=== PATIENT | male | born 1955 | race Caucasian/White ===

== ENCOUNTER 2020-07-24 12:45 | Outpatient (REF) | payer BC, SELFPAY ==
[2020-07-24 14:42] LABS: Hematocrit 45.2 % (42-52); Hemoglobin 15.1 g/dl (14.0-18.0); Mean Corpuscular HGB Conc 33.4 g/dl (31.0-36.0); Mean Corpuscular Hemoglobin 27.9 pg (27.0-33.0); Mean Corpuscular Volume 83.4 fL (80-98); Mean Platelet Volume 10.5 fL (9.4-12.4); Platelet Count 192 X10*3/uL (160-400); Red Blood Count 5.42 X10*6/uL (4.60-5.80); Red Cell Distribution Width 12.6 % (11.0-16.0); White Blood Count 6.9 X10*3/uL (4.8-10.8)
[2020-07-24 15:11] LABS: Glucose Urine UA NEG (NEG); Leukocyte Esterase Urine NEG (NEG); Nitrite Urine NEG (NEG); Specific Gravity - Urine 1.025 (1.005-1.025); Urine Blood NEG (NEG); Urine Ketones NEG (NEG); Urine Protein NEG (NEG-TRACE)
[2020-07-24 15:14] LABS: Appearance Urine CLEAR; Color Urine YELLOW
[2020-07-24 15:26] LABS: Alanine Aminotransferase 45 U/L (0-40); Albumin Level 4.4 g/dL (3.5-5.0); Alkaline Phosphatase 113 U/L (39-117); Anion Gap 12 (12-20); Aspartate Amino Transferase 26 U/L (5-37); Bilirubin Total 0.9 mg/dL (0.0-1.0); Blood Urea Nitrogen 16 mg/dL (9-16); Calcium 8.8 mg/dL (8.4-10.2); Carbon Dioxide 30 mmol/L (22-29); Chloride 101 mmol/L (96-108); Cholesterol 110 mg/dL; Estimated Glomerular Filt Rate > 60; Glucose Fasting 79 mg/dL (60-99); HDL Cholesterol 37 mg/dL; LDL Cholesterol Calculated 62 mg/dl; Potassium 5.1 mmol/l (3.3-5.1); Sodium 138 mmol/L (135-145); Total Protein 6.9 g/dL (6.5-8.0); Triglycerides 56 mg/dL
== END 2020-07-24 12:46 | disposition home or self-care (01) ==
LOC: HO.HMGCLDS 12:45
PROVIDERS: PCP Internal Medicine; Visit Provider Internal Medicine
DX: E78.2 Mixed hyperlipidemia (principal); I10 Essential (primary) hypertension; F41.9 Anxiety disorder, unspecified
CPT/HCPCS: 36415; 80053; 80061; 81003; 84153; 85027

== ENCOUNTER 2021-02-01 07:56 | Outpatient (REF) | payer BC, SELFPAY ==
[2021-02-01 11:29] LABS: MANUAL DIFF FLAG NO
[2021-02-01 11:44] LABS: Basophils Percent Auto 0.5 % (0-2); Eosinophils Absolute Auto 0.3 X10*3/uL (0.0-0.4); Eosinophils Percent Auto 3.4 % (0-4); Hematocrit 45.7 % (42-52); Hemoglobin 14.9 g/dl (14.0-18.0); Imm Gran Abs Auto 0.02 X10*3/uL (0.00-0.03); Imm Gran Pct Auto 0.2 % (0.0-0.4); Lymphocytes Absolute Auto 2.4 X10*3/uL (1.2-4.9); Lymphocytes Percent Auto 30.2 % (20-40); Mean Corpuscular HGB Conc 32.6 g/dl (31.0-36.0); Mean Corpuscular Hemoglobin 27.7 pg (27.0-33.0); Mean Corpuscular Volume 85.1 fL (80-98); Mean Platelet Volume 10.4 fL (9.4-12.4); Monocytes Absolute Auto 0.6 X10*3/uL (0.1-1.2); Monocytes Percent Auto 7.6 % (2-11); Neutrophils Absolute Auto 4.7 X10*3/uL (2.0-8.3); Neutrophils Percent Auto 58.1 % (45-73); Platelet Count 190 X10*3/uL (160-400); Red Blood Count 5.37 X10*6/uL (4.60-5.80); Red Cell Distribution Width 12.8 % (11.0-16.0)
[2021-02-01 12:21] LABS: Alanine Aminotransferase 38 U/L (0-40); Albumin Level 4.1 g/dL (3.5-5.0); Alkaline Phosphatase 108 U/L (39-117); Anion Gap 11 (12-20); Aspartate Amino Transferase 18 U/L (5-37); Bilirubin Total 0.5 mg/dL (0.0-1.0); Blood Urea Nitrogen 15 mg/dL (9-16); Calcium 8.9 mg/dL (8.4-10.2); Carbon Dioxide 29 mmol/L (22-29); Chloride 105 mmol/L (96-108); Cholesterol 108 mg/dL; Estimated Glomerular Filt Rate > 60; Glucose Fasting 98 mg/dL (60-99); HDL Cholesterol 34 mg/dL; LDL Cholesterol Calculated 60 mg/dl; Potassium 4.3 mmol/L (3.3-5.1); Sodium 141 mmol/L (135-145); Total Protein 6.6 g/dL (6.5-8.0); Triglycerides 70 mg/dL
== END 2021-02-01 07:57 | disposition home or self-care (01) ==
LOC: HO.HMGCLDS 07:56
PROVIDERS: PCP Internal Medicine; Visit Provider Internal Medicine
DX: Z00.00 Encounter for general adult medical examination without abnormal findings (principal); I10 Essential (primary) hypertension; I25.10 Atherosclerotic heart disease of native coronary artery without angina pectoris; E78.5 Hyperlipidemia, unspecified
CPT/HCPCS: 36415; 80053; 80061; 85025

== ENCOUNTER 2021-09-28 07:51 | Outpatient (REF) | payer BC, SELFPAY ==
[2021-09-28 12:16] LABS: Alanine Aminotransferase 54 U/L (0-40); Albumin Level 4.1 g/dL (3.5-5.0); Alkaline Phosphatase 105 U/L (39-117); Anion Gap 12 (12-20); Aspartate Amino Transferase 28 U/L (5-37); Bilirubin Total 0.9 mg/dL (0.0-1.0); Blood Urea Nitrogen 10 mg/dL (9-16); Carbon Dioxide 29 mmol/L (22-29); Chloride 105 mmol/L (96-108); Cholesterol 98 mg/dL; Estimated Glomerular Filt Rate > 60; Glucose Fasting 99 mg/dL (60-99); HDL Cholesterol 26 mg/dL; LDL Cholesterol Calculated 55 mg/dl; Potassium 4.3 mmol/L (3.3-5.1); Sodium 142 mmol/L (135-145); Total Protein 6.8 g/dL (6.5-8.0); Triglycerides 86 mg/dL
== END 2021-09-28 07:52 | disposition home or self-care (01) ==
LOC: HO.HMGCLDS 07:51
PROVIDERS: PCP Internal Medicine; Visit Provider Internal Medicine
DX: E78.5 Hyperlipidemia, unspecified (principal); I10 Essential (primary) hypertension
CPT/HCPCS: 36415; 80053; 80061

== ENCOUNTER 2021-12-23 08:47 | Outpatient (REF) | payer BC, SELFPAY ==
--- NOTE | ~2021-12-23 | XR_ITS ---
EXAMINATION: XR SHOULDER , RIGHT CLINICAL INFORMATION: Pain COMPARISON: None available at the time of this dictation. TECHNIQUE: AP external rotation, Grashey, scapular Y, and axillary views of the shoulder. FINDINGS: BONES: There is no fracture or dislocation, no osteolytic or osteoblastic lesion. JOINTS: Loss of joint space and developed osteophytes from the edges of articular surfaces suggest advanced degenerative arthritis of the glenohumeral joint. There is mild to moderate degenerative osteoarthritis of the acromioclavicular joint. SOFT TISSUE AND INCLUDED LUNG: Normal. 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 Mild to moderate DJD of the adjacent AC joint.
[2021-12-23 11:34] LABS: Appearance Urine CLEAR; Color Urine YELLOW; Glucose Urine UA NEG (NEG); Leukocyte Esterase Urine NEG (NEG); Nitrite Urine NEG (NEG); Urine Blood NEG (NEG); Urine Ketones NEG (NEG); Urine Protein NEG (NEG-TRACE)
[2021-12-23 11:47] LABS: Mucus Urine 1+ /LPF; RBC Urine 0 /HPF (0); Squamous Epithelial Cell Urine TRACE /LPF; WBC Urine 0 /HPF (0-4)
[2021-12-23 11:53] LABS: Hematocrit 45.8 % (42.0-52.0); Hemoglobin 15.1 g/dl (14.0-18.0); Mean Corpuscular Hemoglobin 27.9 pg (27.0-33.0); Mean Corpuscular Volume 84.7 fL (80.0-98.0); Mean Platelet Volume 10.6 fL (9.4-12.4); Platelet Count 205 X10*3/uL (160-400); Red Blood Count 5.41 X10*6/uL (4.60-5.80); Red Cell Distribution Width 12.8 % (11.0-16.0)
[2021-12-23 12:01] LABS: Alanine Aminotransferase 38 U/L (0-40); Albumin Level 4.2 g/dL (3.5-5.0); Alkaline Phosphatase 100 U/L (39-117); Anion Gap 12 (12-20); Aspartate Amino Transferase 21 U/L (5-37); Bilirubin Total 0.8 mg/dL (0.0-1.0); Blood Urea Nitrogen 14 mg/dL (9-16); Calcium 9.5 mg/dL (8.4-10.2); Carbon Dioxide 28 mmol/L (22-29); Chloride 105 mmol/L (96-108); Cholesterol 104 mg/dL; Estimated Glomerular Filt Rate > 60; Glucose Fasting 104 mg/dL (60-99); HDL Cholesterol 32 mg/dL; LDL Cholesterol Calculated 60 mg/dl; Potassium 4.5 mmol/L (3.3-5.1); Sodium 140 mmol/L (135-145); Total Protein 6.9 g/dL (6.5-8.0); Triglycerides 62 mg/dL
[2021-12-23 12:04] LABS: Prostate Specific Antigen Scr 0.88 ng/mL (<0.05-4.0)
== END 2021-12-23 08:48 | disposition home or self-care (01) ==
LOC: HO.HMGCLDS 08:47
PROVIDERS: PCP Internal Medicine; Visit Provider Internal Medicine
DX: Z00.00 Encounter for general adult medical examination without abnormal findings (principal); Z12.5 Encounter for screening for malignant neoplasm of prostate; I10 Essential (primary) hypertension; E78.5 Hyperlipidemia, unspecified; M25.511 Pain in right shoulder
CPT/HCPCS: 36415; 73030; 80053; 80061; 81001; 84153; 85027

== ENCOUNTER 2022-01-26 08:00 | Outpatient (RCR) | payer BC, SELFPAY ==
--- NOTE | 2022-01-20 14:09 | MHC.PT.EP ---
[facility] [place] Office [place] Office [place] Office [address] Felix Barrera [address] [phone] F: [phone] F: [phone] F: [phone] F: [phone] Physical Therapy Plan of Care Date of Evaluation: Date of Surgery: Diagnosis: Pain R shoulder. Assessment: Pt is a 66 y/o male referred to PT for eval and treat of R shoulder pain who presents with signs and sx consistent with shoulder dysfunction resulting in decreased tolerance and ability to perform reaching a high shelf, dressing pullovers, performing fitness activities, reaching neck and back for hygiene/ dressing and carrying objects of weight as well as heavy HH chores secondary to decreased R UE strength and ROM, decreased posture, increased tissue tension and pain. Pt is deemed an appropriate candidate to receive skilled PT in order to address his physical limitations to improve his functional ability. Frequency and Duration: The patient will be seen 2 x / wk x 5 wks. Short Term Goals: Initiate HEP. Improve baseline pain with activity to <4/10; initial; 03/27. 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 Pt will be able to place object on high shelf with managed Sx. Initial: 02/25. Pt will be able to dress pullovers with managed Sx. Initial; 03/27. Improve R shoulder flexion MMT to by at least 1/2 MMT grade. Treatment Plan: Modalities to reduce pain, spasms and effusion. Manual therapy to restore motion and function. Therapeutic exercise to improve strength and flexibility. Neuromuscular re-education for posture and balance. Therapeutic activities to return to functional activities of daily living. Electronically signed by: Mikhail Michelle PT. Please sign and return to therapist. Thank you for your referral.
--- NOTE | 2022-03-16 14:24 | MHC.PT.DC ---
[facility] [place] Office [place] Office [place] Office [address] Felix Barrera [address] [phone] F: [phone] F: [phone] F: [phone] F: [phone] Physical Therapy Discharge Report Diagnosis: Pain R shoulder. Date of Surgery: Date of Evaluation: 01/17/22 Date of Discharge: 03/16/22 Treatments to Date: 3 Cancellations to Date: No Shows to Date: Discharge Status: Patient Elected to Stop Discharge Summary: Electronically signed by: Mikhail Michelle PT. Please sign and return to therapist. Thank you for your referral.
== END 2022-03-16 14:25 | disposition home or self-care (01) ==
LOC: HO.PTCHIC 08:00
PROVIDERS: PCP Internal Medicine; Visit Provider Internal Medicine
DX: M25.512 Pain in left shoulder (principal)
CPT/HCPCS: 97110; 97161

== ENCOUNTER 2022-06-30 15:23 | Emergency (ER) | payer BC, SELFPAY ==
--- NOTE | ~2022-06-30 | CT_ITS ---
EXAMINATION: CT ABDOMEN AND PELVIS WITHOUT CONTRAST CLINICAL INFORMATION: Abdominal pain. Suprapubic pain, left lower quadrant pain. COMPARISON: None TECHNIQUE: Multidetector volumetric imaging was performed from the superior aspect of the liver through the pubic symphysis. Sagittal and coronal reformatted images were obtained on the technologist's workstation. This CT examination was performed using dose optimization techniques as appropriate, variously including the following: *Automated exposure control *Adjustment of mA and/or kV according to patient size (this includes techniques or standardized protocols for targeted exams where dose is matched to indication/reason for exam; i.e. extremities or head) *Use of iterative reconstruction technique DLP: 688 mGy-cm FINDINGS: LUNG BASES: There are vascular calcification of coronary arteries. Heart size normal. Lung bases are normally aerated. LIVER, GALLBLADDER, AND BILIARY TREE: The liver is normal in size, shape, and attenuation. No focal hepatic lesion or biliary ductal dilatation is present. The gallbladder is unremarkable with no evidence of radiopaque gallstones, gallbladder wall thickening, or obvious pericholecystic inflammatory changes. PANCREAS: Unremarkable. SPLEEN: Unremarkable. ADRENAL GLANDS: Unremarkable. KIDNEYS AND URETERS: The kidneys are normal in size, shape, and attenuation. No hydronephrosis, hydroureter, or calculi seen. No perinephric stranding. BLADDER: Unremarkable. GASTROINTESTINAL TRACT: The small and large bowel are unremarkable. The appendix is unremarkable. ABDOMINAL WALL: No significant hernia is appreciated. LYMPH NODES: Normal. VASCULAR: Vascular calcifications of aorta and iliac arteries. No aneurysm. PELVIC VISCERA: Unremarkable. OSSEOUS STRUCTURES: Multilevel degenerative spondylosis spine. CT/CT abdomen pelvis wo IV con IMPRESSION: No significant abnormality. Fleischner guidelines were followed.
[2022-06-30 15:29] VITALS: PULSE 84; RESP 18; TEMP 36.7; O2SAT 100; BMI 32.3
[2022-06-30 15:44] LABS: MANUAL DIFF FLAG NO
[2022-06-30 15:47] LABS: Basophils Percent Auto 0.5 % (0-2); Eosinophils Absolute Auto 0.2 X10*3/uL (0.0-0.4); Eosinophils Percent Auto 1.9 % (0-4); Hematocrit 43.9 % (42.0-52.0); Hemoglobin 15.1 g/dl (14.0-18.0); Imm Gran Abs Auto 0.02 X10*3/uL (0.00-0.03); Imm Gran Pct Auto 0.2 % (0.0-0.4); Lymphocytes Absolute Auto 2.1 X10*3/uL (1.2-4.9); Lymphocytes Percent Auto 24.5 % (20-40); Mean Corpuscular HGB Conc 34.4 g/dl (31.0-36.0); Mean Corpuscular Hemoglobin 28.1 pg (27.0-33.0); Mean Corpuscular Volume 81.6 fL (80.0-98.0); Mean Platelet Volume 9.5 fL (9.4-12.4); Monocytes Absolute Auto 0.6 X10*3/uL (0.1-1.2); Monocytes Percent Auto 7.1 % (2-11); Neutrophils Absolute Auto 5.5 x10*3/uL (2.0-8.3); Neutrophils Percent Auto 65.8 % (45-73); Platelet Count 182 X10*3/uL (160-400); Red Blood Count 5.38 X10*6/uL (4.60-5.80); Red Cell Distribution Width 12.3 % (11.0-16.0); White Blood Count 8.4 X10*3/uL (4.8-10.8)
[2022-06-30 15:48] LABS: Appearance Urine Clear; Color Urine Yellow; Glucose Urine UA Negative (Negative); Leukocyte Esterase Urine Negative (Negative); Nitrite Urine Negative (Negative); PH 8.5 (5.0-9.0); Urine Blood Negative (Negative); Urine Ketones Negative (Negative); Urine Protein Negative (Neg-Trace)
[2022-06-30 16:13] LABS: Alanine Aminotransferase 35 U/L (0-40); Albumin Level 4.4 g/dL (3.5-5.0); Alkaline Phosphatase 110 U/L (39-117); Anion Gap 15 (12-20); Aspartate Amino Transferase 25 U/L (5-37); Bilirubin Direct 0.4 mg/dL (0.0-0.5); Bilirubin Total 0.8 mg/dL (0.0-1.0); Blood Urea Nitrogen 12 mg/dL (9-16); Calcium 9.4 mg/dL (8.4-10.2); Carbon Dioxide 27 mmol/L (22-29); Chloride 102 mmol/L (96-108); Creatinine Clr Calc Pharmacy 88.1; Estimated Glomerular Filt Rate > 60; Glucose Random 110 mg/dL (60-115); Lipase 26 U/L (8-78); Potassium 4.4 mmol/L (3.3-5.1); Sodium 140 mmol/L (135-145)
[2022-06-30 18:26] VITALS: BP 146/93; PULSE 69; RESP 18; TEMP 36.4; O2SAT 98
--- NOTE | 2022-06-30 22:02 | ED_ITS ---
HPI - Abdominal Pain General Chief Complaint: Abdominal Pain Stated Complaint: sent form doctors, lower abd pain Time Seen by Provider: 06/30/22 21:58 Source: patient Mode of arrival: ambulatory Limitations: no limitations History of Present Illness HPI narrative: 67 yo male with hx of HTN, HLD, anxiety here with c/o low suprapubic abdominal pain x 24 hours denies other associated symptoms like n/v/d dysuria/hematuria. States his has never happened before. MD elicited complaint: abdominal pain Pertinent past history: none Onset (ago): day(s) (1) Pain Consistency: constant Location: suprapubic Severity: moderate Quality: aching Radiation: none Migration to: no migration Exacerbating factors: nothing Relieving factors: nothing Associated symptoms: denies other symptoms Related Data Home Medications Medication Instructions Recorded Confirmed aspirin 81 mg tablet,delayed 81 mg PO DAILY 07/27/20 06/30/22 release Previous Rx's Medication Instructions Recorded atorvastatin 80 mg tablet 80 mg PO DAILY #90 tabs 07/28/21 lisinopril 30 mg tablet 30 mg PO DAILY #90 tabs 07/28/21 metoprolol succinate 50 mg 50 mg PO DAILY #90 tabs 07/28/21 tablet,extended release 24 hr buspirone 5 mg tablet 5 mg PO BID #180 tabs 09/29/21 omeprazole 20 mg capsule,delayed 40 mg PO DAILY #180 caps 04/15/22 release Allergies Allergy/AdvReac Type Severity Reaction Status Date / Time No Known Allergies Allergy Verified 06/30/22 14:31 Review of Systems Review of Systems Constitutional : No Weight loss, No Fever, No Chills ENT/Mouth : No sore throat, No Rhinorrhea Eyes: No Swelling, No Redness Cardiovascular : No Chest Pain, No SOB, NoEdema Respiratory : No Cough, No Sputum, No Wheezing Gastrointestinal : no Nausea, no Vomiting, no Diarrhea, positive abdominal Pain, No Hematochezia, No Melena Genitourinary : No Dysuria, No Urinary Frequency, No Hematuria, No Urgency Musculoskeletal : No joint pain, No Myalgias, No Joint Swelling Skin : No Skin Lesions, No rash Neuro : No Weakness, No Numbness, No Dizziness, No Headache Psych : No Anxiety/Panic, No Depression Heme/Lymph: No Bruising, No Lymphadenopathy Endocrine : No Polyuria, No Polydipsia All other systems reviewed and are negative. PMFSH Past Medical History Attestation statement: The following information was validated with the patient. Medical History Annual physical exam Anxiety CAD (coronary artery disease) Eczema GERD (gastroesophageal reflux disease) HTN (hypertension) Hyperlipidemia Overweight Shoulder pain Surgical History H/O colonoscopy History of esophagogastroduodenoscopy (EGD) No pertinent past surgical history Social History Social History Housing: House Alcohol intake: never Patient Tobacco Use Status: Never used Tobacco Advance Directives: No Advance Directives Information Provided: No Current occupational status: employed Cognitive needs: No Hearing needs: No Vision needs: No Physical Exam ED Vital Signs: Vital Signs - 24 hr 06/30/22 15:29 06/30/22 18:26 Temperature 98.1 F 97.5 F Pulse Rate 84 69 Respiratory Rate 18 18 Blood Pressure 146/93 H Pulse Oximetry 100 98 Oxygen Delivery Method Room Air Room Air BMI result Body Mass Index 32.3 Appearance: Alert. Oriented X3. No acute distress. Eyes: Pupils equal, round and reactive to light. ENT: Pharynx normal. Neck: Normal inspection. Neck supple. CVS: Normal heart rate and rhythm. Pulses normal. Respiratory: No respiratory distress. Breath sounds normal. Abdomen: Soft and moderate ttp in suprapubic and LLQ area no rebound or guarding Skin: Skin warm and dry. Normal skin color. Normal skin turgor. Extremities: No lower extremity edema. No calf ttp Neuro: Oriented X 3. No motor deficit. No sensory deficit. Course Course Course Narrative: signed out to Dr. Quijano pending CT scan MDM - Abdominal Pain MDM Narrative Medical decision making narrative: 67 yo male with hx of HTN, HLD, anxiety here with c/o lower abdominal pain x 24 hours - at this time denies associated symptoms will obtain basic labs, UA, CT scan for renal colic, mass, diverticulitis. Dispo per results and findings. Lab Data Result diagrams: 06/30/22 15:34 06/30/22 15:34 Labs: Lab Results 06/30/22 06/30/22 06/30/22 Range/Units 15:34 15:34 15:34 WBC 8.4 (4.8-10.8) X10*3/uL RBC 5.38 (4.60-5.80) X10*6/uL Hgb 15.1 (14.0-18.0) g/dl Hct 43.9 (42.0-52.0) % MCV 81.6 (80.0-98.0) fL MCH 28.1 (27.0-33.0) pg MCHC 34.4 (31.0-36.0) g/dl RDW 12.3 (11.0-16.0) % Plt Count 182 (160-400) X10*3/uL MPV 9.5 (9.4-12.4) fL Immature Gran % (Auto) 0.2 (0.0-0.4) % Neut % (Auto) 65.8 (45-73) % Lymph % (Auto) 24.5 (20-40) % [place] % (Auto) 7.1 (2-11) % Eos % (Auto) 1.9 (0-4) % Baso % (Auto) 0.5 (0-2) % Lymph # (Auto) 2.1 (1.2-4.9) X10*3/uL [place] # (Auto) 0.6 (0.1-1.2) X10*3/uL Eos # (Auto) 0.2 (0.0-0.4) X10*3/uL Baso # (Auto) 0.0 (0.0-0.2) X10*3/uL Abs Immat Gran (auto) 0.02 (0.00-0.03) X10*3/uL Absolute Neuts (auto) 5.5 (2.0-8.3) x10*3/uL Absolute Nucleated RBC 0.000 (0.0-0.012) X10*3/uL Nucleated RBC % (auto) 0.0 (0.0-0.2) /100WBC Sodium 140 (135-145) mmol/L Potassium 4.4 (3.3-5.1) mmol/L Chloride 102 (96-108) mmol/L Carbon Dioxide 27 (22-29) mmol/L Anion Gap 15 (12-20) BUN 12 (9-16) mg/dL Creatinine 1.00 (0.5-1.4) mg/dL Estim Creat Clear Calc 88.1 Estimated GFR > 60 Random Glucose 110 (60-115) mg/dL Calcium 9.4 (8.4-10.2) mg/dL Total Bilirubin 0.8 (0.0-1.0) mg/dL Direct Bilirubin 0.4 (0.0-0.5) mg/dL AST 25 (5-37) U/L ALT 35 (0-40) U/L Alkaline Phosphatase 110 (39-117) U/L Total Protein 7.0 (6.5-8.0) g/dL Albumin 4.4 (3.5-5.0) g/dL Lipase 26 (8-78) U/L Urine Color Yellow Urine Appearance Clear Urine pH 8.5 (5.0-9.0) Ur Specific [place] 1.010 (1.005-1.025) Urine Protein Negative (Neg-Trace) mg/dL Urine Glucose (UA) Negative (Negative) mg/dL Urine Ketones Negative (Negative) mg/dL Urine Blood Negative (Negative) Urine Nitrite Negative (Negative) Ur Leukocyte Esterase Negative (Negative) Discharge Plan Discharge Clinical Impression: Abdominal pain Qualifiers: Abdominal location: lower abdomen, unspecified Qualified Code(s): R10.30 - Lower abdominal pain, unspecified Patient Disposition: Still a Patient Prescriptions: No Action atorvastatin 80 mg tablet 80 mg PO DAILY Qty: 90 3RF lisinopril 30 mg tablet 30 mg PO DAILY Qty: 90 3RF metoprolol succinate 50 mg tablet extended release 24 hr 50 mg PO DAILY Qty: 90 3RF omeprazole 20 mg capsule,delayed release(DR/EC) 40 mg PO DAILY Qty: 180 3RF aspirin 81 mg tablet,delayed release (DR/EC) 81 mg PO DAILY buspirone 5 mg tablet 5 mg PO BID Qty: 180 3RF
[2022-06-30] MEDS: HYDROcodone Bit/Acetam 5/325 TABLET 1 TAB PO (22:47)
[2022-06-30] MEDS: Ondansetron ODT 4 MG TAB.RAPDIS TRANSLINGU (22:48)
== END 2022-07-01 00:13 | disposition home or self-care (01) ==
PROVIDERS: Emergency Provider Emergency Medicine; PCP Internal Medicine
DX: R10.30 Lower abdominal pain, unspecified (principal); I10 Essential (primary) hypertension; E78.5 Hyperlipidemia, unspecified; Z79.02 Long term (current) use of antithrombotics/antiplatelets; Z79.82 Long term (current) use of aspirin; Z79.899 Other long term (current) drug therapy
CPT/HCPCS: 36415; 74176; 80053; 81003; 82248; 83690; 85025; 99283; 99284

== ENCOUNTER 2022-08-15 12:57 | Outpatient (REF) | payer BC, SELFPAY ==
--- NOTE | ~2022-08-15 | XR_ITS ---
EXAMINATION: XR CHEST CLINICAL INFORMATION: Pleurodynia. COMPARISON: None TECHNIQUE: 2 views of the chest were obtained. FINDINGS: No significant abnormality is noted involving the heart, lungs, mediastinum, bony thorax or soft tissues. XR/XR chest 2V IMPRESSION: No acute cardiopulmonary process.
== END 2022-08-15 12:58 | disposition home or self-care (01) ==
LOC: HO.HMGCX 12:57
PROVIDERS: PCP Internal Medicine; Visit Provider Emergency Medicine
DX: R07.81 Pleurodynia (principal)
CPT/HCPCS: 71046

== ENCOUNTER 2023-02-24 14:15 | Outpatient (REF) | payer BC, SELFPAY ==
--- NOTE | ~2023-02-24 | XR_ITS ---
EXAMINATION: XR KNEE, LEFT CLINICAL INFORMATION: Injury COMPARISON: None available. TECHNIQUE: Three views of the left knee. FINDINGS: Bone alignment is normal. No fracture or dislocation. Mild medial femoral tibial joint space narrowing. Degenerative meniscal calcification. No significant joint effusion. XR/XR knee LT 2V IMPRESSION: Mild degenerative changes.
== END 2023-02-24 14:16 | disposition home or self-care (01) ==
LOC: HO.HMGCX 14:15
PROVIDERS: PCP Internal Medicine; Visit Provider Internal Medicine
DX: S89.92XA Unspecified injury of left lower leg, initial encounter (principal); X58.XXXA Exposure to other specified factors, initial encounter; Y93.9 Activity, unspecified; Y92.9 Unspecified place or not applicable; Y99.9 Unspecified external cause status
CPT/HCPCS: 73560

== ENCOUNTER 2023-04-12 07:00 | Outpatient (RCR) | payer BC, SELFPAY ==
--- NOTE | 2023-03-15 16:06 | MHC.PT.EP ---
[facility] [place] Office [place] Office [place] Office [address] Felix Barrera [address] [phone] F: [phone] F: [phone] F: [phone] F: [phone] Physical Therapy Plan of Care Date of Evaluation: Date of Surgery: Diagnosis: Injury of left lower leg. Assessment: Pt is a 68 y/o male referred to PT for eval and treat of injury of left lower leg. Resulting in difficulty and decreased tolerance walking, squatting, negotiating stairs, performing heavy HH chores, and pivoting secondary to decreased L knee strength, TTP of medial L knee, posterior L knee swelling, and gait abnormality. Pt is deemed an appropriate candidate to receive skilled PT services to address their physical impairments in order to improve their functional ability. Frequency and Duration: The patient will be seen 2 x / wk x 4 wks Short Term Goals: Initiate home program. Improve baseline pain with activity to < 4/10; initial: 0-7/10. Mcc Goals: I with home program. Pt will be able to walk 2 blocks without difficulty. Improve LEFI outcome measure by at least 9 points. Pt will no linger be TTP of his medial L knee. Treatment Plan: Modalities to reduce pain, spasms and effusion. Manual therapy to restore motion and function. Therapeutic exercise to improve strength and flexibility. Neuromuscular re-education for posture and balance. Therapeutic activities to return to functional activities of daily living. Electronically signed by: Mikhail Michelle PT. Please sign and return to therapist. Thank you for your referral.
--- NOTE | 2023-05-29 14:45 | MHC.PT.DC ---
[facility] [place] [facility] [place] [facility] [place] [facility] [address] Felix Barrera [address] [phone] F: [phone] F: [phone] F: [phone] F: [phone] Physical Therapy Discharge Report Diagnosis: Injury of left lower leg. Date of Surgery: Date of Evaluation: 03/15/23 Date of Discharge: 05/29/23 Treatments to Date: 7 Cancellations to Date: No Shows to Date: Discharge Status: Patient Elected to Stop Recommend MD Follow-up Discharge Summary: Pt was put on therapy hold as he followed up with his MD as he has not progressed in PT. Pt has not followed up with therapy in 2 months and is DC per attendance. Electronically signed by: Mikhail Michelle PT Please sign and return to therapist. Thank you for your referral.
== END 2023-05-29 14:46 | disposition home or self-care (01) ==
LOC: HO.PTCHIC 07:00
PROVIDERS: PCP Internal Medicine; Visit Provider Internal Medicine
DX: S89.92XD Unspecified injury of left lower leg, subsequent encounter (principal)
CPT/HCPCS: 97110; 97140; 97161

== ENCOUNTER 2023-04-25 07:40 | Outpatient (REF) | payer BC, SELFPAY ==
[2023-04-25 11:25] LABS: MANUAL DIFF FLAG NO
[2023-04-25 11:47] LABS: Basophils Absolute Auto 0.1 X10*3/uL (0.0-0.2); Basophils Percent Auto 0.6 % (0-2); Eosinophils Absolute Auto 0.2 X10*3/uL (0.0-0.4); Hematocrit 46.8 % (42.0-52.0); Hemoglobin 15.5 g/dl (14.0-18.0); Imm Gran Abs Auto 0.02 X10*3/uL (0.00-0.03); Imm Gran Pct Auto 0.3 % (0.0-0.4); Lymphocytes Absolute Auto 2.6 X10*3/uL (1.2-4.9); Lymphocytes Percent Auto 32.6 % (20-40); Mean Corpuscular HGB Conc 33.1 g/dl (31.0-36.0); Mean Corpuscular Hemoglobin 28.4 pg (27.0-33.0); Mean Corpuscular Volume 85.7 fL (80.0-98.0); Mean Platelet Volume 10.8 fL (9.4-12.4); Monocytes Absolute Auto 0.5 X10*3/uL (0.1-1.2); Monocytes Percent Auto 6.6 % (2-11); Neutrophils Absolute Auto 4.5 x10*3/uL (2.0-8.3); Neutrophils Percent Auto 56.9 % (45-73); Platelet Count 192 X10*3/uL (160-400); Red Blood Count 5.46 X10*6/uL (4.60-5.80); Red Cell Distribution Width 12.9 % (11.0-16.0); White Blood Count 7.9 X10*3/uL (4.8-10.8)
[2023-04-25 12:20] LABS: Alanine Aminotransferase 34 U/L (0-40); Albumin Level 4.1 g/dL (3.5-5.0); Alkaline Phosphatase 94 U/L (39-117); Anion Gap 11 (12-20); Aspartate Amino Transferase 17 U/L (5-37); Bilirubin Total 0.7 mg/dL (0.0-1.0); Blood Urea Nitrogen 16 mg/dL (9-16); Calcium 9.3 mg/dL (8.4-10.2); Carbon Dioxide 27 mmol/L (22-29); Chloride 106 mmol/L (96-108); Cholesterol 117 mg/dL; Estimated Glomerular Filt Rate > 60; Glucose Fasting 107 mg/dL (60-99); HDL Cholesterol 35 mg/dL; LDL Cholesterol Calculated 64 mg/dl; Potassium 4.6 mmol/L (3.3-5.1); Sodium 139 mmol/L (135-145); Total Protein 6.8 g/dL (6.5-8.0); Triglycerides 93 mg/dL
[2023-04-25 12:43] LABS: PSA,Total (Free>4and<10) 0.83 ng/mL (0.00-4.00)
== END 2023-04-25 07:41 | disposition home or self-care (01) ==
LOC: HO.HMGCLDS 07:40
PROVIDERS: PCP Internal Medicine; Visit Provider Internal Medicine
DX: Z12.5 Encounter for screening for malignant neoplasm of prostate (principal); E78.5 Hyperlipidemia, unspecified; I10 Essential (primary) hypertension
CPT/HCPCS: 36415; 80053; 80061; 84153; 85025

== ENCOUNTER 2023-04-25 12:30 | Outpatient (AMB) | payer BC, SELFPAY ==
--- NOTE | 2023-04-25 12:31 | MHC.PC.OV ---
Vital Signs 04/25/23 12:44 Height 5 ft 10 in Weight 234 lb BMI 33.6 BP 128/88 Blood Pressure Location Lt brachial Position Sitting Pulse 76 Pulse Source Pulse Oximeter Pulse Oximetry (%) 96 Oxygen Delivery Method Room Air Intake Visit Reasons: PE/htn Allergies No Known Allergies Allergy (Verified 04/25/23 12:44) Medication List - Last Reconciled 04/25/23 by Viki Stanton MD aspirin 81 mg PO DAILY atorvastatin 80 mg PO DAILY buspirone 5 mg PO BID lisinopril 30 mg PO DAILY meloxicam 15 mg PO DAILY metoprolol succinate ER 50 mg PO DAILY omeprazole 40 mg (2 x 20 mg) PO DAILY prednisone 20 mg PO DAILY Tobacco use date assessed: 04/25/23 Fall risk assessment: No Falls in past year Last assessed Fall Risk: 04/25/23 Dental Screening Dental Screen Date: 04/25/23 Did you have a dental visit in the last 12 months?: Yes Did you have a dental problem in the last 6 months where you did not have access to dental care?: No Was dental information given to patient?: No HPI PE/htn HPI Details Pt presents for PE. Patient complains of persistent left knee pain worse when walking but also at rest. Patient completed a few weeks of physical therapy without significant improvement. [facility] Medical History Annual physical exam Anxiety CAD (coronary artery disease) Eczema GERD (gastroesophageal reflux disease) HTN (hypertension) Hyperlipidemia Overweight Shoulder pain Surgical History H/O colonoscopy History of esophagogastroduodenoscopy (EGD) No pertinent past surgical history Family History Father Hypertension Heart problem Mother Hypertension Stroke Social History Housing: House Alcohol intake: never Patient Tobacco Use Status: Never used Tobacco e-Cigarette/Vaping Use: Never Used Current occupational status: employed Cognitive needs: No Hearing needs: No Vision needs: No Questionnaire Thrive Questionnaire Date Thrive assessed: 02/24/23 AUDIT C Alcohol Use Questionnaire (AUDIT-C) 1. How often do you have a drink containing alcohol?: Never 3. How often do you have six or more drinks on one occasion?: Never Total Score: 0 Score Reviewed/Action Taken: Yes CLAUDIO-7 AMB Questionnaire CLAUDIO-7 Date CLAUDIO - 7 assessed: 02/24/23 Source: Developed by Drs. Gino Webb, Sheri Fernandez, Yoni Sousa and colleagues, with an educational rustam from [employer]. Review of Systems Const All systems reviewed & are unremarkable except as noted in HPI and below Reports no additional complaints Eyes Reports no additional complaints ENT Reports no additional complaints Card Reports no additional complaints Resp Reports no additional complaints GI Reports no additional complaints Reports no additional complaints Physical exam (Primary Care) Vital Signs: Last Vital Signs Pulse 76 04/25/23 12:44 BP 128/88 04/25/23 12:44 Pulse Ox 96 04/25/23 12:44 Oxygen Delivery Method Room Air 04/25/23 12:44 BMI result Body Mass Index 33.6 Tobacco/Smoking Status: Tobacco use Status Tobacco use date assessed 04/25/23 04/25/23 12:46 Patient Tobacco Use Status Never used Tobacco 04/25/23 12:31 e-Cigarette/Vaping Use Never Used 04/25/23 12:31 Thrive Assessment: Date of Thrive Assessment Date Thrive assessed 02/24/23 04/25/23 12:31 Const General: no acute distress HENMT Head: Yes normal to inspection Ears: hearing grossly normal bilaterally General nose exam: Normal external nose present Face and sinus: Yes normal facial exam Mouth: Normal oral and palatal mucosa present Throat: Yes posterior oropharynx normal Eyes General: appearance normal, both eyes and all related structures Neck Neck: Yes no lymphadenopathy and Yes supple Resp Effort & Inspection: normal respiratory effort Auscultation: clear to auscultation bilaterally Cardio Rhythm: regular rhythm Heart sounds: S1 normal heart sound present and S2 normal heart sound present GI Inspection: Yes normal to inspection Palpation (GI): Soft to palpation Percussion: Yes normal to percussion Auscultation: normal bowel sounds Extrem Other: Left knee with decreased range of motion, medial aspect tenderness, no soft tissue swelling erythema or warmth Assessment and Plan Assessment & Plan (1) Left knee injury: Code(s): S89.92XA - Unspecified injury of left lower leg, initial encounter (2) Knee pain, left: Code(s): M25.562 - Pain in left knee Plan: Persistent left knee pain despite physical therapy MRI will be obtained and patient will be referred to orthopedic surgeon (3) Hyperlipidemia: Code(s): E78.5 - Hyperlipidemia, unspecified Plan: Continue statin (4) HTN (hypertension): Code(s): I10 - Essential (primary) hypertension Plan: Continue current medications (5) Annual physical exam: Code(s): Z00.00 - Encounter for general adult medical examination without abnormal findings Plan: Well-balanced diet and regular physical activity discussed with the patient Orders: Orders MR knee LT wo con Today M25.562 - Pain in left knee Comprehensive [place]. Panel Fast 365 Days E78.5 - Hyperlipidemia, unspecified, I10 - Essential (primary) hypertension, Z00.00 - Encounter for general adult medical examination without abnormal findings Lipid Panel 365 Days E78.5 - Hyperlipidemia, unspecified, I10 - Essential (primary) hypertension, Z00.00 - Encounter for general adult medical examination without abnormal findings PSA,Total (Free>4and<10) 365 Days E78.5 - Hyperlipidemia, unspecified, I10 - Essential (primary) hypertension, Z00.00 - Encounter for general adult medical examination without abnormal findings Complete Blood Count Auto Diff 365 Days E78.5 - Hyperlipidemia, unspecified, I10 - Essential (primary) hypertension, Z00.00 - Encounter for general adult medical examination without abnormal findings UA w Microscopic 365 Days E78.5 - Hyperlipidemia, unspecified, I10 - Essential (primary) hypertension, Z00.00 - Encounter for general adult medical examination without abnormal findings Referrals Orthopedics Referral M25.562 - Pain in left knee Medications: Discontinued meloxicam Discontinued Reason: Doctor's Order 15 mg PO DAILY 10 tabs 0RF prednisone 2 tabl qd x 4 days, then 1 tabl qd x 4 Discontinued Reason: Doctor's Order 20 mg PO DAILY 12 tabs 0RF Coding Level of Care Code Est Pt Prev Care >65y(81248) Diagnoses Left knee injury S89.92XA Knee pain, left M25.562 Hyperlipidemia E78.5 HTN (hypertension) I10 Annual physical exam Z00.00
[2023-04-25 12:44] VITALS: BP 128/88; PULSE 76; O2SAT 96; BMI 33.6
== END 2023-04-25 13:36 | disposition home or self-care (01) ==
PROVIDERS: PCP Internal Medicine; Visit Provider Internal Medicine
DX: Z00.00 Encounter for general adult medical examination without abnormal findings (principal); S89.92XA Unspecified injury of left lower leg, initial encounter; M25.562 Pain in left knee; I10 Essential (primary) hypertension; E78.5 Hyperlipidemia, unspecified
CPT/HCPCS: 99397

== ENCOUNTER 2023-05-03 07:51 | Outpatient (AMB) | payer BC, SELFPAY ==
--- NOTE | 2023-05-03 07:53 | MHC.OFFVIS ---
Intake Vital Signs 05/03/23 07:53 Height 51 ft Weight 234 lb BMI 0.4 Intake Visit Reasons: [employer]-Left Knee Pain Intake Note: Tomi 68 yr old male presents today for a new patient visit for an evaluation of his left knee pain. States has sharp pains when walking, fully extending his knee, and when resting at night. Pain is mainly in his medial aspect of knee. The patient states that he did twist his knee several years ago. He had acute onset of pain. Since that time his symptoms have gotten worse in spite of continued non operative treatments. He has done physical therapy for 12 weeks over the last 6 months which aggravated his pain. He has had injections in the past which gave him minimal relief. He has also tried anti-inflammatory medicines and Tylenol which gave him no relief. The patient states that his left knee will give out several times per day. Allergies No Known Allergies Allergy (Verified 05/03/23 07:57) [facility] Medical History Annual physical exam Anxiety CAD (coronary artery disease) Eczema GERD (gastroesophageal reflux disease) HTN (hypertension) Hyperlipidemia Overweight Shoulder pain Surgical History H/O colonoscopy History of esophagogastroduodenoscopy (EGD) No pertinent past surgical history Family History Father Hypertension Heart problem Mother Hypertension Stroke Social History (Updated 05/03/23 @ 07:58 by [facility]) Housing: House Alcohol intake: never Patient Tobacco Use Status: Never used Tobacco e-Cigarette/Vaping Use: Never Used Current occupational status: retired Current occupation: rt hand Cognitive needs: No Hearing needs: No Vision needs: No Physical Exam Vital Signs: BMI result Body Mass Index 0.4 Const Other: Well-nourished well-developed very friendly male awake alert and oriented x3 in no acute distress Extrem Other: Bilateral lower extremity examination shows good capillary refill, no skin lesions noted, normal sensation light touch Left knee examination shows a minimal effusion, minimal crepitus with range of motion, tenderness along his medial joint line, positive Rhonda's test, no instability Results Reviewed Results Reviewed: X-rays of the patient's left knee show mild diffuse joint space narrowing, no acute bony abnormalities Assessment & Plan Assessment & Plan (1) Tear of medial meniscus of left knee: Code(s): S83.242A - Other tear of medial meniscus, current injury, left knee, initial encounter Plan: Mr. Neumann presents with progressively worsening left knee pain and mechanical symptoms most likely due to a medial meniscus tear. Thus, I will send the patient for an MRI of his left knee for further evaluation. I will see him back once the MRI is completed to discuss the findings and treatment options. Feel free to call me at any time should questions regarding his orthopedic management arise. Thank you very much for asking me to see this very friendly gentleman. I spent 22 minutes in reviewing the patient's records and imaging studies, seeing the patient and documenting in the medical record. Orders: Orders MR knee LT wo con Today S83.242A - Other tear of medial meniscus, current injury, left knee, initial encounter Coding Level of Care Code New Pt Level 2 (98405) Diagnoses Tear of medial meniscus of left knee S83.242A
== END 2023-05-03 08:18 | disposition home or self-care (01) ==
PROVIDERS: PCP Internal Medicine; Visit Provider Orthopaedic Surgery
DX: S83.242A Other tear of medial meniscus, current injury, left knee, initial encounter (principal)
CPT/HCPCS: 99202

== ENCOUNTER → 2023-05-03 07:51 | Outpatient (BNVA) | payer BC, SELFPAY | PROVIDERS: PCP Internal Medicine; Visit Provider Orthopaedic Surgery ==

== ENCOUNTER 2023-05-31 14:36 | Outpatient (REF) | payer BC, SELFPAY ==
--- NOTE | ~2023-05-31 | MR_ITS ---
EXAMINATION: MR KNEE WITHOUT CONTRAST, LEFT CLINICAL INFORMATION: Left knee pain. COMPARISON: Radiographs 02/24/2023 TECHNIQUE: MRI of the knee without contrast was performed using routine sequences on a high-field scanner. FINDINGS: MENISCI: Medial Meniscus: Complex tear of the meniscal body and horizontal tearing extending along the posterior horn. A portion of the meniscal undersurface is displaced into the meniscotibial recess posteromedially. Lateral Meniscus: Borderline discoid morphology with horizontal tearing and several small parameniscal cysts at the periphery of the anterior horn. LIGAMENTS: Cruciate: Intact. Mild mucoid degeneration of the ACL. Collateral: Intact. Thickening of the proximal MCL suggests a remote sprain. EXTENSOR MECHANISM: Intact ARTICULAR CARTILAGE/BONE: Patellofemoral Compartment: Mild cartilage thinning and surface irregularity of the central trochlea. Medial Compartment: Cartilage thinning and surface irregularity throughout the weight-bearing aspect with prominent subchondral marrow edema of the tibia anteriorly with foci of chondral delamination. Small marginal osteophytes. Lateral Compartment: Small marginal osteophytes and peripheral cartilage thinning of the tibia. JOINT FLUID AND BURSAE: Moderate joint effusion with diffuse synovitis. There is a large complex Walters's cyst measuring at least 9 cm in length with edema and fluid extending distally beyond the imaged [id number] due to Walters's cyst rupture or leakage. MR/MR knee LT wo con IMPRESSION: 1. Complex tearing of the medial meniscus body and posterior horn. 2. Borderline discoid morphology of the lateral meniscus with horizontal tearing and small parameniscal cysts at the periphery of the anterior horn. 3.Mild tricompartmental osteoarthritis. Moderate joint effusion and leaking, large complex Walters's cyst.
== END 2023-05-31 14:37 | disposition home or self-care (01) ==
LOC: HO.MRI 14:36
PROVIDERS: PCP Internal Medicine; Visit Provider Internal Medicine
DX: M25.562 Pain in left knee (principal)
CPT/HCPCS: 73721

== ENCOUNTER 2023-06-08 10:46 | Outpatient (AMB) | payer BC, SELFPAY ==
[2023-06-08 10:51] VITALS: BMI 33.6
--- NOTE | 2023-06-08 10:51 | A.OFFVIS_ITS ---
Intake Vital Signs 06/08/23 10:51 Height 5 ft 10 in Weight 234 lb BMI 33.6 Intake Visit Reasons: OV-MRI Results Intake Note: Tomi a 68 year old male who presents today with daughter for a MRI review of left knee. Patient reports he continues to have pain, stating very little but not much improvement in pain the past 2 days. Allergies No Known Allergies Allergy (Verified 06/08/23 10:57) HPI OV-MRI Results HPI Details 68-year-old male who returns to the [facility] today for an MRI review of left knee. He states his pain is currently improved in the past 2 days but he continues to have medial joint line tenderness and limitations with daily activities. [facility] Medical History Annual physical exam Anxiety CAD (coronary artery disease) Eczema GERD (gastroesophageal reflux disease) HTN (hypertension) Hyperlipidemia Overweight Shoulder pain Surgical History History of esophagogastroduodenoscopy (EGD) H/O colonoscopy No pertinent past surgical history Family History Father Hypertension Heart problem Mother Hypertension Stroke Social History Housing: House Alcohol intake: never Patient Tobacco Use Status: Never used Tobacco e-Cigarette/Vaping Use: Never Used Current occupational status: retired Current occupation: rt hand Cognitive needs: No Hearing needs: No Vision needs: No Review of Systems Const All systems reviewed & are unremarkable except as noted in HPI and below Physical Exam Vital Signs: BMI result Body Mass Index 33.6 Extrem Other: Left knee: Skin intact, no erythema or joint effusion. Tenderness along the medial joint line. Full ROM with crepitus. Positive Aylin?s. No ligamentous laxity. NVI. Results Reviewed Results Reviewed: MR knee LT wo con IMPRESSION: 1. Complex tearing of the medial meniscus body and posterior horn. 2. Borderline discoid morphology of the lateral meniscus with horizontal tearing and small parameniscal cysts at the periphery of the anterior horn. 3.Mild tricompartmental osteoarthritis. Moderate joint effusion and leaking, large complex Walters's cyst. Assessment & Plan Assessment & Plan (1) Tear of medial meniscus of left knee: Code(s): S83.242A - Other tear of medial meniscus, current injury, left knee, initial encounter Qualifiers: Encounter type: initial encounter Meniscus tear of knee type: other type Tear current or old: current Qualified Code(s): S83.242A - Other tear of medial meniscus, current injury, left knee, initial encounter Plan I discussed the extent of the injury to the patient and options available which include surgical intervention. I explained the procedure in detail along with the length of recovery and rehab course. I explained the risk, benefits and alternatives. Risk including, but not limited to infection, blood clots, bleeding, ongoing pain and stiffness. I answered all their questions and with their understanding they have consented to move forward with left knee arthroscopy with Dr. Rdz. The patient will be booked accordingly. Patient Instructions: Scribed for Virginia Melendez PA-C, by Abdullahi Allen medical terminologist, on 06/08/2023 at 11:00 AM Virginia RAMOS PA-C, have personally reviewed and agree with the information entered by the scribe. Coding Level of Care Code Est Pt Level 3 (50986) Diagnoses Other tear of medial meniscus of left knee as current injury, initial encounter S83.242A Encounter type: initial encounter Meniscus tear of knee type: other type Tear current or old: current
== END 2023-06-08 11:47 | disposition home or self-care (01) ==
PROVIDERS: PCP Internal Medicine; Visit Provider Physician Assistant
DX: S83.242A Other tear of medial meniscus, current injury, left knee, initial encounter (principal)
CPT/HCPCS: 99214

== ENCOUNTER → 2023-06-08 10:46 | Outpatient (BNVA) | payer BC, SELFPAY | PROVIDERS: PCP Internal Medicine; Visit Provider Physician Assistant ==

== ENCOUNTER 2023-06-19 08:31 | Outpatient (AMB) | payer BC, SELFPAY ==
--- NOTE | 2023-06-19 08:33 | MHC.OFFVIS ---
Intake Intake Visit Reasons: OV-Lt Knee - Discuss Surgery (07/05/23) Intake Note: Tomi is a 68 year old male who presents today to discuss Left knee Surgery. Allergies No Known Allergies Allergy (Verified 06/08/23 10:57) HPI OV-Lt Knee - Discuss Surgery (07/05/23) HPI Details Tomi is a 68 year old man who presents to discuss surgery for his left MMT. He speaks Slovenian and is accompanied by his son today who acts as a postdoctoral fellow. He complains of pain with daily activity, worse with twisting activities. He says his pain began in 02/07, and he has found limited relief from PT, injections, or NSAIDs. He had some questions about the recovery from surgery and in regards to his knee OA, including if repeat injections would help him more. [facility] Medical History Annual physical exam Anxiety CAD (coronary artery disease) Eczema GERD (gastroesophageal reflux disease) HTN (hypertension) Hyperlipidemia Overweight Shoulder pain Surgical History History of esophagogastroduodenoscopy (EGD) H/O colonoscopy No pertinent past surgical history Family History Father Hypertension Heart problem Mother Hypertension Stroke Social History Housing: House Alcohol intake: never Patient Tobacco Use Status: Never used Tobacco e-Cigarette/Vaping Use: Never Used Current occupational status: retired Current occupation: rt hand Cognitive needs: No Hearing needs: No Vision needs: No Review of Systems Const All systems reviewed & are unremarkable except as noted in HPI and below Physical Exam Const General: no acute distress, alert and awake Orientation/consciousness: patient oriented x3 HEENT Head: Yes normocephalic and Yes atraumatic Eyes EOM: EOMs intact bilaterally Resp Effort & Inspection: normal respiratory effort and able to speak in complete sentences Cardio Jugular venous distension: no JVD Skin General skin exam: turgor normal Rashes: no rashes Neuro General: patient oriented x3 Extrem Other: Left Knee: Full ROM TTP MJL + Medial Aylin's Psych Appearance: grossly normal Affect: normal affect Attitude: cooperative Results Reviewed Results Reviewed: I personally reviewed relevant MR images 1. Complex tearing of the medial meniscus body and posterior horn. 2. Borderline discoid morphology of the lateral meniscus with horizontal tearing and small parameniscal cysts at the periphery of the anterior horn. 3.Mild tricompartmental osteoarthritis. Moderate joint effusion and leaking, large complex Walters's cyst. Assessment & Plan Assessment & Plan (1) Tear of medial meniscus of left knee: Code(s): S83.242A - Other tear of medial meniscus, current injury, left knee, initial encounter Qualifiers: Encounter type: initial encounter Meniscus tear of knee type: other type Tear current or old: current Qualified Code(s): S83.242A - Other tear of medial meniscus, current injury, left knee, initial encounter Plan: This is a 68 year old man with a complex left knee MMT, in a setting of mild PF OA. He has pain with daily activity, worse with twisting activities. He has failed conservative treatment options and feels limited in his ADLs. I recommend knee arthroscopy.. I explained this surgery including the risks, benefits, and recovery timeline, including the risks of incomplete symptoms resolution. He expressed understanding and would like to proceed forward. Plan Scribed for Kingsley Rdz MD by Luiz Peters, anesthesiology medical doctor, on 06/19/23 at 8:55 AM, EST. Coding Level of Care Code Est Pt Level 4 (36230) Diagnoses Other tear of medial meniscus of left knee as current injury, initial encounter S83.242A Encounter type: initial encounter Meniscus tear of knee type: other type Tear current or old: current
== END 2023-06-19 10:26 | disposition home or self-care (01) ==
PROVIDERS: PCP Internal Medicine; Visit Provider Orthopaedic Surgery
DX: S83.242A Other tear of medial meniscus, current injury, left knee, initial encounter (principal)
CPT/HCPCS: 99214

== ENCOUNTER → 2023-06-19 08:31 | Outpatient (BNVA) | payer BC, SELFPAY | PROVIDERS: PCP Internal Medicine; Visit Provider Orthopaedic Surgery ==

== ENCOUNTER 2023-07-05 06:02 | Day surgery (SDC) | payer BC, SELFPAY ==
[2023-06-30 15:34] VITALS: BMI 33.6
--- NOTE | 2023-07-04 09:35 | P.CONAN_ITS ---
Documented by User: Shyla Donald NP 07/04/23 09:38 HPI - Anesthesia Eval Consult details Narrative: 68yo M for Knee Arthroscopy CAD with stent 2016 - stable cardiac status, only follows with PCP, Last office visit 04/2023 [facility] Active Problems Active Problems: All Active Problems (Updated 07/03/23 @ 08:50 by Shanell Barraza RN) Erectile dysfunction (Acute) Tear of medial meniscus of left knee (Acute) Knee pain, left (Acute) Left knee injury (Acute) Shoulder pain (Acute) Anxiety (Acute) Eczema (Acute) Hyperlipidemia (Acute) HTN (hypertension) (Acute) Annual physical exam (Acute) Past Medical History Medical History Shoulder pain Anxiety Eczema Annual physical exam GERD (gastroesophageal reflux disease) Overweight CAD (coronary artery disease) Hyperlipidemia HTN (hypertension) Family History Family History Father Hypertension Heart problem Mother Hypertension Stroke Surgical History Surgical History Hx of heart artery stent History of esophagogastroduodenoscopy (EGD) H/O colonoscopy Social History Social History Housing: House Are you a primary clinical care coordinator to a significant other at home: No Alcohol intake: never Patient Tobacco Use Status: Former Tobacco user e-Cigarette/Vaping Use: Never Used Have you been hit, kicked, punched, or otherwise hurt by someone within the past year? If so, by whom?: No Are you DNR?: No Advance Directives: No Advance Directives Information Provided: Yes Recently lost weight without trying: No Eating poorly because of decreased appetite: No Nutrition Risks: No Nutritional Risk Poor oral hygiene: No Current occupational status: retired Current occupation: rt hand Cognitive needs: No Hearing needs: No Vision needs: No Meds Allergies Allergy/AdvReac Type Severity Reaction Status Date / Time No Known Allergies Allergy Verified 06/08/23 10:57 Home Medications Medication Instructions Recorded Confirmed Last Taken Type aspirin 81 mg tablet,delayed 81 mg PO DAILY 07/27/20 06/30/23 Unknown History release meloxicam 15 mg tablet 15 mg PO DAILY 06/30/23 06/30/23 Unknown History Exam Exam Date and Time: July 04, 2023 0935 Height,Weight and Vital Signs: Height 5 ft 10 in Weight 106.141 kg Pertinent Lab Results Pertinent Lab Results: Laboratory Tests 04/25/23 07:52 WBC 7.9 Hgb 15.5 Hct 46.8 Plt Count 192 Sodium 139 Potassium 4.6 Chloride 106 Carbon Dioxide 27 BUN 16 Creatinine 0.90 Assessment and Plan Assessment Anesthesia Assessment: Chart Reviewed Documented by User: Kian Durán MD 07/05/23 07:57 PMFSH Past Medical History Medical History Shoulder pain Anxiety Eczema Annual physical exam GERD (gastroesophageal reflux disease) Overweight CAD (coronary artery disease) Hyperlipidemia HTN (hypertension) Family History Family History Father Hypertension Heart problem Mother Hypertension Stroke Family history of problems with anesthesia: No Surgical History Surgical History Hx of heart artery stent History of esophagogastroduodenoscopy (EGD) H/O colonoscopy History of Problems with Anesthesia: No Social History Social History Housing: House Are you a primary clinical care coordinator to a significant other at home: No Alcohol intake: never Patient Tobacco Use Status: Former Tobacco user e-Cigarette/Vaping Use: Never Used Have you been hit, kicked, punched, or otherwise hurt by someone within the past year? If so, by whom?: No Are you DNR?: No Advance Directives: No Advance Directives Information Provided: Yes Recently lost weight without trying: No Eating poorly because of decreased appetite: No Nutrition Risks: No Nutritional Risk Poor oral hygiene: No Current occupational status: retired Current occupation: rt hand Cognitive needs: No Hearing needs: No Vision needs: No Meds Allergies Allergy/AdvReac Type Severity Reaction Status Date / Time No Known Allergies Allergy Verified 06/08/23 10:57 Home Medications Medication Instructions Recorded Confirmed Last Taken Type aspirin 81 mg tablet,delayed 81 mg PO DAILY 07/27/20 06/30/23 Unknown History release meloxicam 15 mg tablet 15 mg PO DAILY 06/30/23 06/30/23 Unknown History Exam Airway Mallampati Class: III TM Dist: >3cm Neck ROM: Full Assessment and Plan Assessment Anesthesia Assessment: Anesthesia Plan Discussed Final Anesthetic Review Family History of Problems with Anesthesia: No History of Problems with Anesthesia: No NPO: Yes ASA Class: II Final Preanesthetic Review: No Changes in Pt Med Stat, Meds/Allgs Chart Reviewed, Consent Obtained/Reviewed and Anes Risks/Benef Reviewed Patient Risk: Intermediate Procedure Risk: Low Anesthetic Plan Anesthetic Plan: GA Disposition: Standard PACU
[2023-07-05] VITALS (7 sets, daily range): BP systolic 93–117; BP diastolic 57–74; PULSE 54–73; RESP 15–18; TEMP 36.4–36.9; O2SAT 92–98
[2023-07-05] MEDS: Lactated Ringers 1,000 ML 100 ML IVCONT (06:34)
[2023-07-05] MEDS: oxyCODONE HCl Immed Release 5 MG TABLET PO (08:56)
--- NOTE | 2023-07-05 09:59 | P.BOP_ITS ---
Brief Operative Note Date of Service: 07/05/23 Pre-op diagnosis: Left knee MMT Post-op diagnosis: other (1) left knee OA 2) left knee MMT 3) Left knee LMT) Procedure: left knee with partial medial and lateral meniscectomy and chondroplasty Surgeon: Kingsley Rdz MD Anesthesia: GETA and local Was an Hand Striper used for this Procedure?: No Estimated blood loss (mL): 5 Tourniquet time (min): 20 IV fluids (mL): 750 Pathology: none sent Condition: stable Disposition: PACU
--- NOTE | 2023-07-13 14:29 | W.PM.OPN ---
Operative Note Operative Note Date of Service: 07/05/23 Narrative: Date of Service: 07/05/23 Pre-op diagnosis: Left knee MMT Post-op diagnosis: other (1) left knee OA 2) left knee MMT 3) Left knee LMT) Procedure: left knee with partial medial and lateral meniscectomy and chondroplasty Surgeon: Kingsley Rdz MD Anesthesia: GETA and local Was an Optical Technician used for this Procedure?: No Estimated blood loss (mL): 5 Tourniquet time (min): 20 IV fluids (mL): 750 Pathology: none sent Condition: stable Disposition: PAC Procedure in detail: Patient was brought to the operating room placed supine on the arthroscopic table and prepped and draped in standard sterile fashion. A time-out was called to identify proper site proper procedure proper surgeon and IV antibiotics per weight were administered. I began by exsanguinating the limb and insufflating tourniquet to 300 mm Hg. Then made a standard anterolateral stab incision. The knee was insufflated with water and 30 degree arthroscope was placed. There was grade 1 fibrillations of the patella. The suprapatellar pouch and the gutters were clean. There was a G4 lesion of the trochlea. I descended into the medial compartment where I made my medial portal under direct visualization. There was obvious of complex tear of the body and posterior horn of the medial meniscus. The root was intact and there was grade 3-4 changes with some scattered grade 2 changes throughout the medial compartment. I used a combination of biter shaver and cautery to remove unstable portions of the meniscus. Approximately 40% meniscal volume was removed. Once I was satisfied with this the ACL was examined and found to be intact. The lateral compartment was examined and there was a degenerative peripheral lateral meniscus tear with chondrocalcinosis and mild scattered degenerative changes. I used a biter and shaver to debride the meniscus and remove the unstable portions . I then removed all instrumentation and closed the portals with skin glue. 25 mL of 2% Marcaine with epinephrine was injected into the joint and the surrounding soft tissues. Patient was then placed in sterile dressing extubated brought recovery room stable condition. There were no known complications.
== END 2023-07-05 09:50 | disposition home or self-care (01) ==
PROVIDERS: PCP Internal Medicine; Visit Provider Orthopaedic Surgery
PROC: (CPT 29870; principal; 2023-07-05 07:30)
DX: S83.242A Other tear of medial meniscus, current injury, left knee, initial encounter (principal); X58.XXXA Exposure to other specified factors, initial encounter; M17.12 Unilateral primary osteoarthritis, left knee; I10 Essential (primary) hypertension; E78.5 Hyperlipidemia, unspecified; K21.9 Gastro-esophageal reflux disease without esophagitis; Z87.891 Personal history of nicotine dependence; Y93.9 Activity, unspecified; Y92.9 Unspecified place or not applicable; Y99.9 Unspecified external cause status
CPT/HCPCS: 29880; J0171; J0690; J1100; J2250; J2405; J2795; J3010

== ENCOUNTER → 2023-07-05 06:02 | Outpatient (BNV) | payer BC, SELFPAY | PROVIDERS: PCP Internal Medicine; Visit Provider Orthopaedic Surgery | DX: S83.232A Complex tear of medial meniscus, current injury, left knee, initial encounter (principal); S83.272A Complex tear of lateral meniscus, current injury, left knee, initial encounter | CPT/HCPCS: 29880 ==

== ENCOUNTER 2023-07-10 10:09 | Outpatient (AMB) | payer BC, SELFPAY ==
--- NOTE | 2023-07-10 10:16 | MHC.OFFVIS ---
Intake Intake Visit Reasons: PO-Lt Knee 07/05/23 NE Intake Note: Tomi a 68 year old male presents today with son in law for a post operative left knee , DOS 07/05/23 NE. Patient reports he is doing well, he has no concerns today. Currently has pain with walking, states pain is 4-5 out of 10. Allergies No Known Allergies Allergy (Verified 07/10/23 10:21) HPI PO-Lt Knee 07/05/23 NE HPI Details 68 yo male returns to the office today s/p Left knee with Dr dRz on 07/05/23. He is doing well, he questions the cyst behind the left knee, which he did have prior to surgery. MRI did mention 9cm bakers cyst. Date of Service: 07/05/23 Pre-op diagnosis: Left knee MMT Post-op diagnosis: other (1) left knee OA 2) left knee MMT 3) Left knee LMT) Procedure: left knee with partial medial and lateral meniscectomy and chondroplasty [facility] Medical History (Updated 07/10/23 @ 10:47 by Virginia Melendez PA-C) Shoulder pain Anxiety Eczema Annual physical exam GERD (gastroesophageal reflux disease) Overweight CAD (coronary artery disease) Hyperlipidemia HTN (hypertension) Surgical History Hx of heart artery stent History of esophagogastroduodenoscopy (EGD) H/O colonoscopy Family History Father Hypertension Heart problem Mother Hypertension Stroke Social History Housing: House Are you a primary personal care aide to a significant other at home: No Alcohol intake: never Patient Tobacco Use Status: Former Tobacco user e-Cigarette/Vaping Use: Never Used Current occupational status: retired Current occupation: rt hand Cognitive needs: No Hearing needs: No Vision needs: No Review of Systems Const All systems reviewed & are unremarkable except as noted in HPI and below Physical Exam Extrem Other: Left knee incison clean, dry and intact. No erythema, mild swelling. Calf supple non tender. NVI Assessment & Plan Assessment & Plan (1) Tear of medial meniscus of left knee: Code(s): S83.242A - Other tear of medial meniscus, current injury, left knee, initial encounter Qualifiers: Tear current or old: current Encounter type: initial encounter Meniscus tear of knee type: other type Qualified Code(s): S83.242A - Other tear of medial meniscus, current injury, left knee, initial encounter (2) Osteoarthritis of left knee: Code(s): M17.12 - Unilateral primary osteoarthritis, left knee Qualifiers: Osteoarthritis type: primary Qualified Code(s): M17.12 - Unilateral primary osteoarthritis, left knee (3) Tear of lateral meniscus of left knee: Code(s): S83.282A - Other tear of lateral meniscus, current injury, left knee, initial encounter Plan I explained to him the cyst behind his knee is consistent with the krause cyst as found on MRI prior to surgery. This should resolve with time but if symptoms get worse or there is concerns, he can certainly contact our the office. I did update his physical therapy referral and gave him their information so that he can to contact them for an appointment. I also stressed the importance of avoiding deep bending, twisting, squatting, or pivoting and he should see us back in 6 weeks for a follow-up, sooner if needed. Orders: Orders PT Evaluation and Treatment 07/07/23 S83.242A - Other tear of medial meniscus, current injury, left knee, initial encounter Patient Instructions: Scribed for Virginia Melendez PA-C, by Abdullahi Allen medical and scientific illustrator, on 07/10/2023 at 10:15 AM EST. I, Virginia Melendez PA-C, have personally reviewed and agree with the information entered by the scribe. Coding Level of Care Code Global (53117) Diagnoses Other tear of medial meniscus of left knee as current injury, initial encounter S83.242A Tear current or old: current Encounter type: initial encounter Meniscus tear of knee type: other type Primary osteoarthritis of left knee M17.12 Osteoarthritis type: primary Tear of lateral meniscus of left knee S83.282A
== END 2023-07-10 10:33 | disposition home or self-care (01) ==
PROVIDERS: PCP Internal Medicine; Visit Provider Physician Assistant
DX: S83.242A Other tear of medial meniscus, current injury, left knee, initial encounter (principal); M17.12 Unilateral primary osteoarthritis, left knee; S83.282A Other tear of lateral meniscus, current injury, left knee, initial encounter
CPT/HCPCS: 99024

== ENCOUNTER → 2023-07-10 10:09 | Outpatient (BNVA) | payer BC, SELFPAY | PROVIDERS: PCP Internal Medicine; Visit Provider Physician Assistant ==

== ENCOUNTER 2023-08-21 09:40 | Outpatient (AMB) | payer BC, SELFPAY ==
--- NOTE | 2023-08-21 09:42 | A.OFFVIS_ITS ---
Intake Vital Signs 08/21/23 09:43 Height 5 ft 10 in Weight 220 lb BMI 31.6 Intake Visit Reasons: PO-Lt Knee 07/05/23 NE Intake Note: Tomi a 68 year old male presents today with son in law for a post operative left knee , DOS 07/05/23 NE Patient reports that he is doing well, but he has increased pain with faster paced walking. Pain is felt on the medial aspect of the left knee. Still working with physical therapy. Allergies No Known Allergies Allergy (Verified 07/10/23 10:21) HPI PO-Lt Knee 07/05/23 NE HPI Details Tomi is a 68 year old man who presents ~6 weeks S/P left knee with partial medial and lateral meniscectomy and chondroplasty. Per-operatively it was found he has knee OA. He says he is doing well overall, but he does continue to have some pain and swelling. He has increased pain primarily with activities such as fast walking or prolonged use of his knee, which also causes some swelling. He localizes his pain to the medial aspect of his knee. He has been working with PT. He is wondering how long the recovery process will be for him. He wants to know if he can have a knee injection to help with his pain. [facility] Medical History Shoulder pain Anxiety Eczema Annual physical exam GERD (gastroesophageal reflux disease) Overweight CAD (coronary artery disease) Hyperlipidemia HTN (hypertension) Surgical History (Updated 08/21/23 @ 09:49 by Janina Hewitt CMA) S/P left knee arthroscopy (07/05/23) Hx of heart artery stent History of esophagogastroduodenoscopy (EGD) H/O colonoscopy Family History Father Hypertension Heart problem Mother Hypertension Stroke Social History Housing: House Are you a primary before and after school daycare worker to a significant other at home: No Alcohol intake: never Patient Tobacco Use Status: Former Tobacco user e-Cigarette/Vaping Use: Never Used Current occupational status: retired Current occupation: rt hand Cognitive needs: No Hearing needs: No Vision needs: No Review of Systems Const All systems reviewed & are unremarkable except as noted in HPI and below Physical Exam Vital Signs: BMI result Body Mass Index 31.6 Const General: no acute distress, alert and awake Orientation/consciousness: patient oriented x3 HEENT Head: Yes normocephalic and Yes atraumatic Eyes EOM: EOMs intact bilaterally Resp Effort & Inspection: normal respiratory effort and able to speak in complete sentences Cardio Jugular venous distension: no JVD Skin General skin exam: turgor normal Rashes: no rashes Neuro General: patient oriented x3 Extrem Other: mild effusion TTP medial joint line Bilateral varus with 1 + left varus instability Psych Appearance: grossly normal Affect: normal affect Attitude: cooperative Assessment & Plan Assessment & Plan (1) Osteoarthritis of left knee: Code(s): M17.12 - Unilateral primary osteoarthritis, left knee Qualifiers: Osteoarthritis type: primary Qualified Code(s): M17.12 - Unilateral primary osteoarthritis, left knee Plan: Effusion and pain after knee with intra op findings of medial compartment OA. Varus alignment. Ordered unlaoder. Continue PT. f/u 6 weeks Coding Level of Care Code Global (00098) Diagnoses Primary osteoarthritis of left knee M17.12 Osteoarthritis type: primary
[2023-08-21 09:43] VITALS: BMI 31.6
== END 2023-08-21 11:20 | disposition home or self-care (01) ==
PROVIDERS: PCP Internal Medicine; Visit Provider Orthopaedic Surgery
DX: M17.12 Unilateral primary osteoarthritis, left knee (principal)
CPT/HCPCS: 99024

== ENCOUNTER → 2023-08-21 09:40 | Outpatient (BNVA) | payer BC, SELFPAY | PROVIDERS: PCP Internal Medicine; Visit Provider Orthopaedic Surgery ==

== ENCOUNTER 2023-08-30 07:00 | Outpatient (RCR) | payer BC, SELFPAY ==
--- NOTE | 2023-07-18 09:24 | MHC.PT.EP ---
[facility] [employer] [place] Office [place] Office [place] Office [address] Felix Barrera [address] [phone] F: [phone] F: [phone] F: [phone] F: [phone] Physical Therapy Plan of Care Date of Evaluation: 07/18/23 Date of Surgery: 07/05/23 Diagnosis: S/P left knee with partial medial and lateral meniscectomy and chondroplasty; H/O INGRAM'S CYST LEFT KNEE Assessment: 68 YO MALE REF TO PT S/P LEFT KNEE with partial medial and lateral meniscectomy and chondroplasty ON 07/05/23; H/O INGRAM'S CYST LEFT KNEE. THE Pt IS RETIRED- AND ACTIVE. HE HAS POST-OP LEFT KNEE ROM DEFICITS, MEDIAL Lt KNEE PAIN, DECR LUMBOPELVIC / Lt LE STRENGTH, ALTERED FUNCTIONAL MOB-> GAIT MECH. THE Pt IS VERY MOTIVATED FOR POST-OP PT, DEV A HEP, AND GRADUALLY RESUMING REGULAR ADLS. Frequency and Duration: The patient will be seen 2 x WK x 6 WKS Short Term Goals: *DECREASE Lt KNEE PAIN TO 2-3/10 *IMPROVE Lt KNEE ROM 0* AND FULL PROM FLEXION, ACTIVE KNEE FLEXION PROGRESSIVELY TO 125* (FOLLOWING PROTOCOL GUIDELINES) *INITIATE HEP *INCREASE FLEXIB IN PSOAS AND ANKLE INCREASE GAIT MECH [place] [employer] Goals: *Pt INDEP HEP PROGR AND SELF-SX MGMT STRATEGIES FOR LEFT LE *Pt RESUME REG ADLs, DISPLAY EFFICIENT GAIT AND TRANSFERS EVIDENT IN IMPROVED LEFI BY 8-10 POINTS *Pt'S Lt LE STRENGTH 5/5 *Pt DEMON Lt SLS x 15 SEC Treatment Plan: Modalities to reduce pain, spasms and effusion. Manual therapy to restore motion and function. Therapeutic exercise to improve strength and flexibility. Neuromuscular re-education for posture and balance. Therapeutic activities to return to functional activities of daily living. Electronically signed by: JUSTIN EUGENE,PT Please sign and return to therapist. Thank you for your referral.
--- NOTE | 2023-08-30 10:34 | MHC.PT.DC ---
[facility] [place] Office [place] Office [place] Office [address] Felix Barrera [address] [phone] F: [phone] F: [phone] F: [phone] F: [phone] Physical Therapy Discharge Report Diagnosis: S/P left knee with partial medial and lateral meniscectomy and chondroplasty; H/O INGRAM'S CYST LEFT KNEE Date of Surgery: 07/05/23 Date of Evaluation: 07/18/23 Date of Discharge: 08/30/23 Treatments to Date: 12 Cancellations to Date: 0 No Shows to Date: 0 Discharge Status: Achieved Goals Improved Function Independent with HEP Discharge Summary: THE Pt HAS PROGRESSED WELL IN HIS POST OP COURSE- HE HAS BEEN AN]BLE TO RESUME REG ADLs AND NOTES HE HAS A 2-3/10 SORENESS IN LEFT MEDIAL KNEE W FAST WALKING. HE HAS 0*-133* AROM IN HIS LEFT KNEE AND LEFT LE STRENGTH IS MUCH IMPROVED TO WFL, HE DEMON WFL SQUAT FOR ADL APPLIC, STAIR NAVIGATION, AND HIS LEFT LE SLS IS 10 SEC. HE BENEFITTED FROM LUMBOPELVIC/ TRUNK STABILIZATION AND STRETCHING. HE DISPLAYS MORE EFFICIENT GAIT MECHANICS ON LEVEL GROUND AND STAIRS. AT THIS TIME HE APPEARS READY TO CONT ON HIS OWN W HIS HEP. Electronically signed by: JUSTIN EUGENE,PT Please sign and return to therapist. Thank you for your referral.
== END 2023-08-30 10:34 | disposition home or self-care (01) ==
LOC: HO.PT 07:00
PROVIDERS: PCP Internal Medicine; Visit Provider Physician Assistant
DX: S83.242A Other tear of medial meniscus, current injury, left knee, initial encounter (principal)
CPT/HCPCS: 97110; 97112; 97140; 97161; 97530

== ENCOUNTER 2024-04-25 07:04 | Outpatient (REF) | payer BC, SELFPAY ==
[2024-04-25 10:14] LABS: Appearance Urine Clear; Color Urine Yellow; Glucose Urine UA Negative (Negative); Leukocyte Esterase Urine Negative (Negative); Nitrite Urine Negative (Negative); Specific Gravity - Urine 1.015 (1.005-1.025); Urine Blood Negative (Negative); Urine Ketones Negative (Negative); Urine Protein Negative (Neg-Trace)
[2024-04-25 10:20] LABS: Bacteria Urine None Seen (None Seen); Hyaline Casts Urine 0-2 /LPF (0-2); RBC Urine 0-2 /HPF (0-2); Squamous Epithelial Cell Urine 0-2 /HPF (0-2); WBC Urine 0-5 /HPF (0-5)
[2024-04-25 10:21] LABS: MANUAL DIFF FLAG NO
[2024-04-25 10:23] LABS: Basophils Percent Auto 0.5 % (0-2); Eosinophils Absolute Auto 0.4 X10*3/uL (0.0-0.4); Eosinophils Percent Auto 4.9 % (0-4); Hematocrit 43.6 % (42.0-52.0); Imm Gran Abs Auto 0.02 X10*3/uL (0.00-0.03); Imm Gran Pct Auto 0.3 % (0.0-0.4); Lymphocytes Absolute Auto 2.1 X10*3/uL (1.2-4.9); Lymphocytes Percent Auto 28.2 % (20-40); Mean Corpuscular HGB Conc 34.4 g/dl (31.0-36.0); Mean Corpuscular Hemoglobin 28.8 pg (27.0-33.0); Mean Corpuscular Volume 83.8 fL (80.0-98.0); Mean Platelet Volume 10.5 fL (9.4-12.4); Monocytes Absolute Auto 0.5 X10*3/uL (0.1-1.2); Monocytes Percent Auto 6.8 % (2-11); Neutrophils Absolute Auto 4.4 x10*3/uL (2.0-8.3); Neutrophils Percent Auto 59.3 % (45-73); Platelet Count 175 X10*3/uL (160-400); Red Cell Distribution Width 12.4 % (11.0-16.0); White Blood Count 7.3 X10*3/uL (4.8-10.8)
[2024-04-25 10:43] LABS: Alanine Aminotransferase 32 U/L (0-40); Alkaline Phosphatase 86 U/L (39-117); Anion Gap 10 (12-20); Aspartate Amino Transferase 20 U/L (5-37); Bilirubin Total 0.7 mg/dL (0.0-1.0); Blood Urea Nitrogen 13 mg/dL (9-16); Calcium 9.6 mg/dL (8.4-10.2); Carbon Dioxide 29 mmol/L (22-29); Chloride 106 mmol/L (96-108); Cholesterol 122 mg/dL (<200); Estimated Glomerular Filt Rate > 60; Glucose Fasting 100 mg/dL (60-99); HDL Cholesterol 42 mg/dL (>40); LDL Cholesterol Calculated 68 mg/dL (<100); Potassium 4.4 mmol/L (3.3-5.1); Sodium 141 mmol/L (135-145); Total Protein 6.5 g/dL (6.5-8.0); Triglycerides 61 mg/dL (<150)
[2024-04-25 10:58] LABS: PSA,Total (Free>4and<10) 0.85 ng/mL (0.00-4.00)
== END 2024-04-25 07:05 | disposition home or self-care (01) ==
LOC: HO.HMGCLDS 07:04
PROVIDERS: PCP Internal Medicine; Visit Provider Internal Medicine
DX: Z00.00 Encounter for general adult medical examination without abnormal findings (principal); E78.5 Hyperlipidemia, unspecified; I10 Essential (primary) hypertension; Z12.5 Encounter for screening for malignant neoplasm of prostate
CPT/HCPCS: 36415; 80053; 80061; 81001; 84153; 85025

== ENCOUNTER 2024-04-26 10:31 | Outpatient (AMB) | payer BC, SELFPAY ==
[2024-04-26 10:32] VITALS: BP 130/74; PULSE 57; O2SAT 98; BMI 31.9
--- NOTE | 2024-04-26 10:32 | MHC.PC.OV ---
Vital Signs 04/26/24 10:32 Height 5 ft 10 in Weight 222 lb BMI 31.9 BP 130/74 Blood Pressure Location Lt brachial Position Sitting Pulse 57 Pulse Source Pulse Oximeter Pulse Oximetry (%) 98 Oxygen Delivery Method Room Air Intake Visit Reasons: PE Intake Note: Pt is here today for PE. Allergies No Known Allergies Allergy (Verified 04/26/24 10:50) Medication List - Last Reconciled 04/26/24 by Viki Stanton MD aspirin 81 mg PO DAILY atorvastatin 80 mg PO DAILY buspirone 5 mg PO BID hydrocodone-acetaminophen 5-325 mg 1 tab PO Q8H PRN 7 days lisinopril 30 mg PO DAILY meloxicam 15 mg PO DAILY metoprolol succinate ER 50 mg PO DAILY omeprazole 40 mg (2 x 20 mg) PO DAILY vardenafil 20 mg PO DAILY Tobacco use date assessed: 04/26/24 Fall risk assessment: No Falls in past year Last assessed Fall Risk: 04/26/24 Dental Screening Dental Screen Date: 04/26/24 Did you have a dental visit in the last 12 months?: Yes Did you have a dental problem in the last 6 months where you did not have access to dental care?: No Was dental information given to patient?: Patient has dentist HPI PE HPI Details Pt presents for PE. Pt c/o chronic bilateral anterior thigh pain worse when walking longer distance. Patient denies any pain at rest. PFSH Medical History (Updated 04/26/24 @ 11:34 by Viki Stanton MD) CAD (coronary artery disease) Shoulder pain Anxiety Eczema Annual physical exam GERD (gastroesophageal reflux disease) Overweight Hyperlipidemia HTN (hypertension) Surgical History S/P left knee arthroscopy (07/05/23) Hx of heart artery stent History of esophagogastroduodenoscopy (EGD) H/O colonoscopy Family History Father Hypertension Heart problem Mother Hypertension Stroke Social History Housing: House Are you a primary care support representative to a significant other at home: No Alcohol intake: never Patient Tobacco Use Status: Former Tobacco user e-Cigarette/Vaping Use: Never Used service: No Current occupational status: retired Current occupation: rt hand Cognitive needs: No Hearing needs: No Vision needs: No Questionnaire PHQ-9 Over the last 2 weeks, how often have you been bothered by any of the following problems? 1. Little interest or pleasure in doing things: not at all 2. Feeling down, depressed, or hopeless: not at all 3. Trouble falling or staying asleep, or sleeping too much: not at all 4. Feeling tired or having little energy: not at all 5. Poor appetite or overeating: not at all 6. Feeling bad about yourself - or that you are a failure or have let yourself or your family down: not at all 7. Trouble concentrating on things, such as reading the newspaper or watching television: not at all 8. Moving or speaking so slowly that other people could have noticed. Or the opposite - being so fidgety or restless that you have been moving around a lot more than usual: not at all 9. Thoughts that you would be better off or of hurting yourself in some way: not at all Total score: 0 Depression Screening Interpretation: Negative Depression Screening Done: Yes Source: Developed by Drs. Gino Webb, Sheri Fernandez, Yoni Sousa and colleagues, with an educational rustam from [employer]. Thrive Questionnaire Date Thrive assessed: 04/26/24 I am a: Patient What is your living situation today?: I have a steady place to live Within the past 12 months, did the food you bought not last and you didn't have the money to get more?: Never true Within the past 12 months, did you worry whether your food would run out before you got money to buy more?: Never true Do you have trouble paying for medicines?: No Do you have trouble getting transportation to medical appointments?: No Do you have trouble paying your heating and electricity bill?: No Do you have trouble taking care of your child, family member or friend?: No Do you have trouble with day-to-day activities such as bathing, preparing meals, shopping, managing finances, etc.?: No Are you currently unemployed and looking for a job?: No Are you interested in more education?: No Please select the resources that you would like help with: None THRIVE Score: 0 AUDIT C Alcohol Use Questionnaire (AUDIT-C) 1. How often do you have a drink containing alcohol?: Never 3. How often do you have six or more drinks on one occasion?: Never Total Score: 0 CLAUDIO-7 AMB Questionnaire CLAUDIO-7 Date CLAUDIO - 7 assessed: 04/26/24 Feeling nervous, anxious, or on edge: 0 = Not at all Not being able to stop or control worryin = Not at all Worrying too much about different things: 0 = Not at all Trouble relaxin = Not at all Being so restless that it is hard to sit still: 0 = Not at all Becoming easily annoyed or irritable: 0 = Not at all Feeling afraid as if something awful might happen: 0 = Not at all Total CLAUDIO-7 score (0-4 normal; 5-9 mild; 10-14 moderate; 15-21 severe): 0 Source: Developed by Drs. Gino Webb, Sheri Fernandez, Yoni Sousa and colleagues, with an educational rustam from [employer]. Review of Systems Const All systems reviewed & are unremarkable except as noted in HPI and below Eyes Reports no additional complaints ENT Reports no additional complaints Card Reports no additional complaints Resp Reports no additional complaints GI Reports no additional complaints Reports no additional complaints Musc Reports no additional complaints Physical exam (Primary Care) Vital Signs: Last Vital Signs Pulse 57 04/26/24 10:32 BP 130/74 04/26/24 10:32 Pulse Ox 98 04/26/24 10:32 Oxygen Delivery Method Room Air 04/26/24 10:32 BMI result Body Mass Index 31.9 Tobacco/Smoking Status: Tobacco use Status Tobacco use date assessed 04/26/24 04/26/24 10:51 Patient Tobacco Use Status Former Tobacco user 04/26/24 10:32 e-Cigarette/Vaping Use Never Used 04/26/24 10:32 PHQ-9: PHQ-9 Score PHQ-9: Total score 0 04/26/24 11:46 Depression Screening Interpretation: Negative Thrive Assessment: Date of Thrive Assessment Date Thrive assessed 04/26/24 04/26/24 10:51 Const General: no acute distress HENMT Head: Yes normal to inspection Ears: hearing grossly normal bilaterally Mouth: Normal oral and palatal mucosa present Eyes General: appearance normal, both eyes and all related structures Neck Neck: Yes supple Resp Effort & Inspection: normal respiratory effort Auscultation: clear to auscultation bilaterally Cardio Rhythm: regular rhythm Heart sounds: S1 normal heart sound present and S2 normal heart sound present GI Inspection: Yes normal to inspection Palpation (GI): Soft to palpation Percussion: Yes normal to percussion Auscultation: normal bowel sounds Assessment and Plan Assessment & Plan (1) CAD (coronary artery disease): Comment: s/p STEMI and RCA drug-eluting stent-December 2015 Code(s): I25.10 - Atherosclerotic heart disease of upper [place] coronary artery without angina pectoris Plan: Continue aspirin and metoprolol. (2) Hyperlipidemia: Code(s): E78.5 - Hyperlipidemia, unspecified Plan: Patient will stop atorvastatin for 1 month and monitor for any improvement in his lower extremities myalgia. Follow-up in 1 month (3) HTN (hypertension): Code(s): I10 - Essential (primary) hypertension Plan: Continue current medications (4) Annual physical exam: Code(s): Z00.00 - Encounter for general adult medical examination without abnormal findings Plan: Well-balanced diet regular physical activity discussed with the patient Orders: Referrals Gastroenterology Referral Z00.00 - Encounter for general adult medical examination without abnormal findings Coding Level of Care Code Est Pt Prev Care >65y(02987) Diagnoses CAD (coronary artery disease) I25.10 Hyperlipidemia E78.5 HTN (hypertension) I10 Annual physical exam Z00.00
== END 2024-04-26 11:46 | disposition home or self-care (01) ==
PROVIDERS: PCP Internal Medicine; Visit Provider Internal Medicine
DX: I25.10 Atherosclerotic heart disease of native coronary artery without angina pectoris (principal); E78.5 Hyperlipidemia, unspecified; I10 Essential (primary) hypertension; Z00.00 Encounter for general adult medical examination without abnormal findings
CPT/HCPCS: 99397

== ENCOUNTER 2024-05-27 10:09 | Outpatient (AMB) | payer BC, SELFPAY ==
[2024-05-27 10:13] VITALS: BP 122/76; PULSE 67; O2SAT 99; BMI 31.7
--- NOTE | 2024-05-27 10:13 | A.OFFPC_ITS ---
Vital Signs 05/27/24 10:13 Height 5 ft 10 in Weight 221 lb BMI 31.7 BP 122/76 Blood Pressure Location Lt brachial Position Sitting Pulse 67 Pulse Source Pulse Oximeter Pulse Oximetry (%) 99 Oxygen Delivery Method Room Air Intake Visit Reasons: 1 month follow up Intake Note: Pt is here today for 1 month follow up visit. Allergies atorvastatin Adverse Reaction (Intermediate, Verified 05/27/24 10:47) myalgia Medication List - Last Reconciled 05/27/24 by Viki Stanton MD aspirin 81 mg PO DAILY buspirone 5 mg PO BID lisinopril 30 mg PO DAILY metoprolol succinate ER 50 mg PO DAILY omeprazole 40 mg (2 x 20 mg) PO DAILY vardenafil 20 mg PO DAILY Tobacco use date assessed: 05/27/24 Fall risk assessment: No Falls in past year Last assessed Fall Risk: 05/27/24 Dental Screening Dental Screen Date: 05/27/24 HPI 1 month follow up HPI Details Patient presents for the follow-up. Myalgia resolved after patient stopped taking atorvastatin. Hypertension is controlled on current medications he has been taking buspirone as needed only for chronic anxiety PFSH Medical History (Updated 04/26/24 @ 11:34 by Viki Stanton MD) CAD (coronary artery disease) Shoulder pain Anxiety Eczema Annual physical exam GERD (gastroesophageal reflux disease) Overweight Hyperlipidemia HTN (hypertension) Surgical History S/P left knee arthroscopy (07/05/23) Hx of heart artery stent History of esophagogastroduodenoscopy (EGD) H/O colonoscopy Family History Father Hypertension Heart problem Mother Hypertension Stroke Social History Housing: House Are you a primary primary care sales representative to a significant other at home: No Alcohol intake: never Patient Tobacco Use Status: Former Tobacco user e-Cigarette/Vaping Use: Never Used service: No Current occupational status: retired Current occupation: rt hand Cognitive needs: No Hearing needs: No Vision needs: No Questionnaire Thrive Questionnaire Date Thrive assessed: 04/26/24 CLAUDIO-7 AMB Questionnaire CLAUDIO-7 Date CLAUDIO - 7 assessed: 04/26/24 Source: Developed by Drs. Gino Webb, Sheri Fernandez, Yoni Sousa and colleagues, with an educational rustam from [employer]. Review of Systems Const All systems reviewed & are unremarkable except as noted in HPI and below ENT Reports no additional complaints Card Reports no additional complaints Resp Reports no additional complaints GI Reports no additional complaints Reports no additional complaints Physical exam (Primary Care) Vital Signs: Last Vital Signs Pulse 67 05/27/24 10:13 BP 122/76 05/27/24 10:13 Pulse Ox 99 05/27/24 10:13 Oxygen Delivery Method Room Air 05/27/24 10:13 BMI result Body Mass Index 31.7 Tobacco/Smoking Status: Tobacco use Status Tobacco use date assessed 05/27/24 05/27/24 10:15 Patient Tobacco Use Status Former Tobacco user 05/27/24 10:14 e-Cigarette/Vaping Use Never Used 05/27/24 10:14 Thrive Assessment: Date of Thrive Assessment Date Thrive assessed 04/26/24 05/27/24 10:14 Const General: no acute distress HENMT Face and sinus: Yes normal facial exam Resp Effort & Inspection: normal respiratory effort Auscultation: clear to auscultation bilaterally Cardio Rhythm: regular rhythm Heart sounds: S1 normal heart sound present and S2 normal heart sound present GI Inspection: Yes normal to inspection Palpation (GI): Soft to palpation Percussion: Yes normal to percussion Auscultation: normal bowel sounds Assessment and Plan Assessment & Plan (1) Hyperlipidemia: Code(s): E78.5 - Hyperlipidemia, unspecified Plan: Continue low-cholesterol diet regular exercise patient will return for fasting lipid profile. A different statin like Crestor will be tried if cholesterol is still elevated (2) HTN (hypertension): Code(s): I10 - Essential (primary) hypertension Plan: Continue current medications Orders: Orders Lipid Panel Today E78.5 - Hyperlipidemia, unspecified Medications: Changed From buspirone 5 mg PO BID 180 tabs 3RF To buspirone 5 mg PO .qd 30 tabs 3RF Refilled lisinopril 30 mg PO DAILY 90 tabs 3RF metoprolol succinate ER 50 mg PO DAILY 90 tabs 3RF vardenafil 20 mg PO DAILY 8 tabs 2RF N52.9 - Male erectile dysfunction, unspecified Discontinued atorvastatin Discontinued Reason: Doctor's Order 80 mg PO DAILY 90 tabs 3RF Coding Level of Care Code Est Pt Level 3 (91556) Diagnoses Hyperlipidemia E78.5 HTN (hypertension) I10
== END 2024-05-27 12:55 | disposition home or self-care (01) ==
PROVIDERS: PCP Internal Medicine; Visit Provider Internal Medicine
DX: E78.5 Hyperlipidemia, unspecified (principal); I10 Essential (primary) hypertension
CPT/HCPCS: 99213

== ENCOUNTER 2024-05-28 06:47 | Outpatient (REF) | payer BC, SELFPAY ==
[2024-05-28 10:12] LABS: MANUAL DIFF FLAG NO
[2024-05-28 10:15] LABS: Basophils Absolute Auto 0.1 X10*3/uL (0.0-0.2); Basophils Percent Auto 0.7 % (0-2); Eosinophils Absolute Auto 0.4 X10*3/uL (0.0-0.4); Eosinophils Percent Auto 5.4 % (0-4); Imm Gran Abs Auto 0.01 X10*3/uL (0.00-0.03); Imm Gran Pct Auto 0.1 % (0.0-0.4); Lymphocytes Absolute Auto 2.4 X10*3/uL (1.2-4.9); Mean Corpuscular HGB Conc 33.3 g/dl (31.0-36.0); Mean Corpuscular Hemoglobin 28.4 pg (27.0-33.0); Mean Corpuscular Volume 85.1 fL (80.0-98.0); Mean Platelet Volume 9.9 fL (9.4-12.4); Monocytes Absolute Auto 0.5 X10*3/uL (0.1-1.2); Monocytes Percent Auto 7.1 % (2-11); Neutrophils Absolute Auto 3.6 x10*3/uL (2.0-8.3); Neutrophils Percent Auto 51.7 % (45-73); Platelet Count 187 X10*3/uL (160-400); Red Blood Count 5.29 X10*6/uL (4.60-5.80); Red Cell Distribution Width 12.6 % (11.0-16.0); White Blood Count 6.9 X10*3/uL (4.8-10.8)
[2024-05-28 10:52] LABS: Alanine Aminotransferase 24 U/L (0-40); Albumin Level 3.9 g/dL (3.5-5.0); Alkaline Phosphatase 90 U/L (39-117); Anion Gap 12 (12-20); Aspartate Amino Transferase 17 U/L (5-37); Bilirubin Total 0.3 mg/dL (0.0-1.0); Blood Urea Nitrogen 12 mg/dL (9-16); Carbon Dioxide 26 mmol/L (22-29); Chloride 107 mmol/L (96-108); Cholesterol 187 mg/dL (<200); Estimated Glomerular Filt Rate > 60; Glucose Fasting 102 mg/dL (60-99); HDL Cholesterol 36 mg/dL (>40); LDL Cholesterol Calculated 124 mg/dL (<100); Potassium 4.7 mmol/L (3.3-5.1); Sodium 140 mmol/L (135-145); Total Protein 6.5 g/dL (6.5-8.0); Triglycerides 135 mg/dL (<150)
[2024-05-28 10:57] LABS: Appearance Urine Clear; Color Urine Yellow; Glucose Urine UA Negative (Negative); Leukocyte Esterase Urine Negative (Negative); Nitrite Urine Negative (Negative); PH 5.5 (5.0-9.0); Specific Gravity - Urine 1.025 (1.005-1.025); Urine Blood Negative (Negative); Urine Ketones Negative (Negative); Urine Protein Negative (Neg-Trace)
[2024-05-28 11:00] LABS: PSA,Total (Free>4and<10) 0.95 ng/mL (0.00-4.00)
[2024-05-28 11:01] LABS: Bacteria Urine None Seen (None Seen); Hyaline Casts Urine 0-2 /LPF (0-2); RBC Urine 0-2 /HPF (0-2); Squamous Epithelial Cell Urine 0-2 /HPF (0-2); WBC Urine 0-5 /HPF (0-5)
== END 2024-05-28 06:48 | disposition home or self-care (01) ==
LOC: HO.HMGCLDS 06:47
PROVIDERS: PCP Internal Medicine; Visit Provider Internal Medicine
DX: E78.5 Hyperlipidemia, unspecified (principal); I25.10 Atherosclerotic heart disease of native coronary artery without angina pectoris; I10 Essential (primary) hypertension; Z12.5 Encounter for screening for malignant neoplasm of prostate
CPT/HCPCS: 36415; 80053; 80061; 81001; 84153; 85025

== ENCOUNTER 2024-09-16 10:29 | Outpatient (AMB) | payer BC, SELFPAY ==
--- NOTE | 2024-09-16 10:34 | MHC.OFFVIS ---
Vital Signs 09/16/24 10:35 Height 5 ft 10 in Weight 230 lb 9.656 oz BMI 33.1 BP 152/82 H Blood Pressure Location Rt brachial Position Sitting Pulse 60 Pulse Source Pulse Oximeter Pulse Oximetry (%) 97 Oxygen Delivery Method Room Air Intake Visit Reasons: Alvin consult - Recall x10 yrs Intake Note: NEW PATIENT Tomi presents in office today for a scheduled colo scrn. Prior hx of colo/egd? 2013 Meds and Allergies reviewed? Y Any significant concerns or questions? No signficant concerns or sx. [facility] verified? [facility] Allergies atorvastatin Adverse Reaction (Intermediate, Verified 09/16/24 10:41) myalgia Medication List - Last Reconciled 09/16/24 by ALE Castañeda- aspirin 81 mg PO DAILY atorvastatin 80 mg PO BEDTIME buspirone 5 mg PO .qd lisinopril 30 mg PO DAILY magnesium aspart,citrate,oxide mg PO metoprolol succinate ER 50 mg PO DAILY omeprazole 40 mg (2 x 20 mg) PO DAILY vardenafil 20 mg PO DAILY HPI HPI Alvin consult - Recall x10 yrs: Details: 69-year-old male with past medical history of hyperlipidemia, CAD, left knee osteoarthritis, anxiety, hypertension is here today for pre colonoscopy screening.? Patient was sent to us by his PCP.? Last colonoscopy 10 years ago..? Patient denies any gastrointestinal symptoms in the past or at present.? Denies any personal or family history of gastrointestinal disease, colon polyps, or CRC.? Denies history of difficulty with sedation or anesthesia in the past.? Negative for history of sleep apnea.? Denies any history of cardiac, renal, pulmonary, or hepatic disease.?? No history of infectious? diseases like hepatitis A, B, C, HIV or tuberculosis.? Patient is on low-dose aspirin and fish oil PFSH Medical History CAD (coronary artery disease) Shoulder pain Anxiety Eczema Annual physical exam GERD (gastroesophageal reflux disease) Overweight Hyperlipidemia HTN (hypertension) Surgical History S/P left knee arthroscopy (07/05/23) Hx of heart artery stent History of esophagogastroduodenoscopy (EGD) H/O colonoscopy Family History Father Hypertension Heart problem Mother Hypertension Stroke Social History Housing: House Are you a primary congregational care pastor to a significant other at home: No Alcohol intake: never Patient Tobacco Use Status: Former Tobacco user e-Cigarette/Vaping Use: Never Used service: No Current occupational status: retired Current occupation: rt hand Cognitive needs: No Hearing needs: No Vision needs: No Review of Systems Const Denies weight gain and Denies weight loss ENT Reports no additional complaints, Denies dysphagia and Denies odynophagia Card Reports no additional complaints Resp Reports no additional complaints GI Denies abdominal pain, Denies belching, Denies melena, Denies bloating, Denies change in bowel habits, Denies dysphagia, Denies excessive flatus, Denies dyspepsia, Denies heartburn, Denies diarrhea, Denies loose stools, Denies nausea, Denies odynophagia and Denies vomiting Reports no additional complaints Musc Reports no additional complaints Neuro Reports no additional complaints Psych Reports no additional complaints Endo Reports no additional complaints Physical Exam Vital Signs: Last Vital Signs Pulse 60 09/16/24 10:35 Pulse Ox 97 09/16/24 10:35 Oxygen Delivery Method Room Air 09/16/24 10:35 BMI result Body Mass Index 33.1 Const General: healthy appearing and no acute distress Nutritional Appearance: obese Orientation/consciousness: patient oriented x3 Resp Effort & Inspection: normal respiratory effort, able to speak in complete sentences, no tracheal deviation and symmetric chest movement Auscultation: clear to auscultation bilaterally Cardio Rate: regular rate GI Inspection: Yes normal to inspection, No distended and Yes obesity Palpation (GI): Soft to palpation, not firm, nontender and No hepatosplenomegaly present Auscultation: normal bowel sounds General: Yes no CVA tenderness Back/Spine/Pelvis Back: no CVA tenderness Skin General skin exam: elasticity normal, turgor normal and dry skin Neuro General: patient oriented x3 Psych Appearance: grossly normal Mental Status: mental status grossly normal Assessment & Plan Assessment & Plan (1) Screen for colon cancer: Code(s): Z12.11 - Encounter for screening for malignant neoplasm of colon Plan Patient denies any GI, cardiac or respiratory symptoms.? Denies any issues with anesthesia in the past.? Denies any history of sleep apnea.? No history infectious diseases in the past or present.? Patient is on low-dose aspirin and fish oil. Patient also takes lisinopril for hypertension. History of stent in 2016.? Patient reports to be feeling well. Denies any cardiac or respiratory symptoms. No family or personal history of colon cancer or polyps.? Patient denies melena, hematochezia, unintentional weight loss or ribbon like stools.? Discussed at length the pre-procedure,? prep, diet & medications as well as what to expect prior, during and after the procedure.?? Stressed the importance of good bowel prep.? Recommended the use of Vaseline or Calmoseptine OTC & baby wipes with bowel movements to promote comfort.? ?Patient verbalizes understanding and agrees to plan of care.? He was given the opportunity to ask questions and all questions answered.? We will see him after the procedure.? Medications: New polyethylene glycol 3350 (Miralax) As directed by gastroenterology department at [facility] 238 grams PO ONCE 238 grams 0RF Z12.11 - Encounter for screening for malignant neoplasm of colon bisacodyl (Dulcolax (bisacodyl)) take 4 tabs at noon the day before your colonoscopy 20 mg (4 x 5 mg) PO ONCE 1 day 4 tabs 0RF Z12.11 - Encounter for screening for malignant neoplasm of colon Coding Level of Care Code New Pt Level 3 (18003) Diagnoses Screen for colon cancer Z12.11 Time Spent (min) 40 Comment 30 minutes spent with patient and additional 10 minutes spent reviewing his records
[2024-09-16 10:35] VITALS: BP 152/82; PULSE 60; O2SAT 97; BMI 33.1
== END 2024-09-16 11:27 | disposition home or self-care (01) ==
PROVIDERS: PCP Internal Medicine; Visit Provider Nurse Practitioner Family
DX: Z01.818 Encounter for other preprocedural examination (principal); Z12.11 Encounter for screening for malignant neoplasm of colon
CPT/HCPCS: S0285

== ENCOUNTER 2024-11-19 12:43 | Outpatient (AMB) | payer BC, SELFPAY ==
--- NOTE | 2024-11-19 12:44 | A.OFFPC_ITS ---
Vital Signs 11/19/24 12:45 Height 5 ft 10 in Weight 230 lb BMI 33.0 BP 146/96 H Blood Pressure Location Lt brachial Position Sitting Respiration 18 Pulse 58 Pulse Source Pulse Oximeter Temp 97.6 F Temp Source Oral Pulse Oximetry (%) 99 Oxygen Delivery Method Room Air Intake Visit Reasons: Elevated BP Intake Note: Elva is here today for a sick visit. Pt c/o elevated BP for couple of days now on and off. Allergies atorvastatin Adverse Reaction (Intermediate, Verified 11/19/24 12:48) myalgia Medication List - Last Reconciled 11/19/24 by Viki Stanton MD aspirin 81 mg PO DAILY atorvastatin 80 mg PO BEDTIME bisacodyl (Dulcolax (bisacodyl)) 20 mg (4 x 5 mg) PO ONCE 1 day buspirone 5 mg PO .qd lisinopril 30 mg PO DAILY magnesium aspart,citrate,oxide mg PO metoprolol succinate ER 50 mg PO DAILY omeprazole 40 mg (2 x 20 mg) PO DAILY polyethylene glycol 3350 (Miralax) 238 grams PO ONCE vardenafil 20 mg PO DAILY Tobacco use date assessed: 11/19/24 Fall risk assessment: No Falls in past year Last assessed Fall Risk: 11/19/24 Dental Screening Dental Screen Date: 11/19/24 Did you have a dental visit in the last 12 months?: Yes Did you have a dental problem in the last 6 months where you did not have access to dental care?: No Was dental information given to patient?: Patient has dentist HPI Elevated BP HPI Details Patient presents complaining of 4 days of increase blood pressure at home up to 160/100. He has been checking his blood pressure at home multiple times. Patient has been compliant with taking metoprolol and lisinopril. He denies excessive salt intake or increased stress. [facility] Medical History CAD (coronary artery disease) Shoulder pain Anxiety Eczema Annual physical exam GERD (gastroesophageal reflux disease) Overweight Hyperlipidemia HTN (hypertension) Surgical History S/P left knee arthroscopy (07/05/23) Hx of heart artery stent History of esophagogastroduodenoscopy (EGD) H/O colonoscopy Family History Father Hypertension Heart problem Mother Hypertension Stroke Social History Housing: House Are you a primary special needs caregiver to a significant other at home: No Alcohol intake: never Patient Tobacco Use Status: Former Tobacco user e-Cigarette/Vaping Use: Never Used service: No Current occupational status: retired Current occupation: rt hand Cognitive needs: No Hearing needs: No Vision needs: No Questionnaire PHQ-9 Over the last 2 weeks, how often have you been bothered by any of the following problems? 1. Little interest or pleasure in doing things: not at all 2. Feeling down, depressed, or hopeless: not at all 3. Trouble falling or staying asleep, or sleeping too much: not at all 4. Feeling tired or having little energy: not at all 5. Poor appetite or overeating: not at all 6. Feeling bad about yourself - or that you are a failure or have let yourself or your family down: not at all 7. Trouble concentrating on things, such as reading the newspaper or watching television: not at all 8. Moving or speaking so slowly that other people could have noticed. Or the opposite - being so fidgety or restless that you have been moving around a lot more than usual: not at all 9. Thoughts that you would be better off or of hurting yourself in some way: not at all Total score: 0 Depression Screening Interpretation: Negative Depression Screening Done: Yes 26045 - PHQ-9 Billing: Yes Source: Developed by Drs. Gino Webb, Sheri Fernandez, Yoni Sousa and colleagues, with an educational rustam from [employer]. Thrive Questionnaire Date Thrive assessed: 11/19/24 I am a: Patient What is your living situation today?: I have a steady place to live Within the past 12 months, did the food you bought not last and you didn't have the money to get more?: Never true Within the past 12 months, did you worry whether your food would run out before you got money to buy more?: Never true Do you have trouble paying for medicines?: No Do you have trouble getting transportation to medical appointments?: No Do you have trouble paying your heating and electricity bill?: No Do you have trouble taking care of your child, family member or friend?: No Do you have trouble with day-to-day activities such as bathing, preparing meals, shopping, managing finances, etc.?: No Are you currently unemployed and looking for a job?: No Are you interested in more education?: No Please select the resources that you would like help with: None THRIVE Score: 0 AUDIT C Alcohol Use Questionnaire (AUDIT-C) 1. How often do you have a drink containing alcohol?: Never 3. How often do you have six or more drinks on one occasion?: Never Total Score: 0 CLAUDIO-7 AMB Questionnaire CLAUDIO-7 Date CLAUDIO - 7 assessed: 11/19/24 Feeling nervous, anxious, or on edge: 0 = Not at all Not being able to stop or control worryin = Not at all Worrying too much about different things: 0 = Not at all Trouble relaxin = Not at all Being so restless that it is hard to sit still: 0 = Not at all Becoming easily annoyed or irritable: 0 = Not at all Feeling afraid as if something awful might happen: 0 = Not at all Total CLAUDIO-7 score (0-4 normal; 5-9 mild; 10-14 moderate; 15-21 severe): 0 Source: Developed by Drs. Gino Webb, Sheri Fernandez, Yoni oSusa and colleagues, with an educational rustam from [employer]. CLAUDIO-7 Assessment Billing CLAUDIO-7 Assessment Tool: CLAUDIO-7 Assessment 43728 Review of Systems Const All systems reviewed & are unremarkable except as noted in HPI and below ENT Reports no additional complaints Card Reports no additional complaints Resp Reports no additional complaints GI Reports no additional complaints Reports no additional complaints Physical exam (Primary Care) Vital Signs: Last Vital Signs Temp 97.6 F 11/19/24 12:45 Pulse 58 11/19/24 12:45 Resp 18 11/19/24 12:45 BP 146/96 H 11/19/24 12:45 Pulse Ox 99 11/19/24 12:45 Oxygen Delivery Method Room Air 11/19/24 12:45 BMI result Body Mass Index 33.0 Tobacco/Smoking Status: Tobacco use Status Tobacco use date assessed 11/19/24 11/19/24 12:46 Patient Tobacco Use Status Former Tobacco user 11/19/24 12:46 e-Cigarette/Vaping Use Never Used 11/19/24 12:46 PHQ-9: PHQ-9 Score PHQ-9: Total score 0 11/19/24 12:46 Depression Screening Interpretation: Negative Thrive Assessment: Date of Thrive Assessment Date Thrive assessed 11/19/24 11/19/24 12:46 Const General: no acute distress HENMT Ears: hearing grossly normal bilaterally Throat: Yes posterior oropharynx normal Eyes General: appearance normal, both eyes and all related structures Resp Effort & Inspection: normal respiratory effort Auscultation: clear to auscultation bilaterally Cardio Rhythm: regular rhythm Heart sounds: S1 normal heart sound present and S2 normal heart sound present Coding Level of Care Code Est Pt Level 3 (00845) Diagnoses HTN (hypertension) I10 Additional Codes CLAUDIO-7 Assessment Billing - CLAUDIO-7 Assessment Tool: CLAUDIO-7 Assessment 00986 ([id number]) PHQ-9 - 72753 - PHQ-9 Billing: Yes ([id number]) Assessment & Plan Assessment & Plan (1) HTN (hypertension): Code(s): I10 - Essential (primary) hypertension Category: Medical Plan: Patient was advised to continue lisinopril and metoprolol and add 5 mg of amlodipine. Follow-up in 1 week and have a fasting comprehensive panel check before. Low-sodium diet regular physical activity discussed with the patient Orders: Orders Comprehensive Met. Panel Today I10 - Essential (primary) hypertension Complete Blood Count Auto Diff Today I10 - Essential (primary) hypertension Medications: New amlodipine 5 mg PO DAILY 90 tabs 1RF
[2024-11-19 12:45] VITALS: BP 146/96; PULSE 58; RESP 18; TEMP 36.4; O2SAT 99; BMI 33.0
== END 2024-11-19 13:19 | disposition home or self-care (01) ==
PROVIDERS: PCP Internal Medicine; Visit Provider Internal Medicine
DX: I10 Essential (primary) hypertension (principal)

== ENCOUNTER → 2024-11-19 12:43 | Outpatient (BNVA) | payer BC, SELFPAY | PROVIDERS: PCP Internal Medicine; Visit Provider Internal Medicine | DX: I10 Essential (primary) hypertension (principal); Z79.899 Other long term (current) drug therapy | CPT/HCPCS: 96127 ==

== ENCOUNTER 2024-11-25 08:17 | Outpatient (REF) | payer BC, SELFPAY ==
[2024-11-25 10:21] LABS: MANUAL DIFF FLAG NO
[2024-11-25 10:24] LABS: Basophils Absolute Auto 0.1 X10*3/uL (0.0-0.2); Basophils Percent Auto 0.7 % (0-2); Eosinophils Absolute Auto 0.2 X10*3/uL (0.0-0.4); Eosinophils Percent Auto 2.9 % (0-4); Hematocrit 45.4 % (42.0-52.0); Hemoglobin 15.3 g/dl (14.0-18.0); Imm Gran Abs Auto 0.02 X10*3/uL (0.00-0.03); Imm Gran Pct Auto 0.3 % (0.0-0.4); Lymphocytes Absolute Auto 2.3 X10*3/uL (1.2-4.9); Lymphocytes Percent Auto 30.8 % (20-40); Mean Corpuscular HGB Conc 33.7 g/dl (31.0-36.0); Mean Corpuscular Hemoglobin 28.1 pg (27.0-33.0); Mean Corpuscular Volume 83.5 fL (80.0-98.0); Mean Platelet Volume 10.5 fL (9.4-12.4); Monocytes Absolute Auto 0.5 X10*3/uL (0.1-1.2); Monocytes Percent Auto 7.4 % (2-11); Neutrophils Absolute Auto 4.2 x10*3/uL (2.0-8.3); Neutrophils Percent Auto 57.9 % (45-73); Platelet Count 190 X10*3/uL (160-400); Red Blood Count 5.44 X10*6/uL (4.60-5.80); Red Cell Distribution Width 12.5 % (11.0-16.0); White Blood Count 7.3 X10*3/uL (4.8-10.8)
[2024-11-25 10:43] LABS: Alanine Aminotransferase 35 U/L (0-40); Albumin Level 4.2 g/dL (3.5-5.0); Alkaline Phosphatase 100 U/L (39-117); Anion Gap 11 (12-20); Aspartate Amino Transferase 23 U/L (5-37); Bilirubin Total 0.9 mg/dL (0.0-1.0); Blood Urea Nitrogen 16 mg/dL (9-16); Calcium 9.2 mg/dL (8.4-10.2); Carbon Dioxide 28 mmol/L (22-29); Chloride 107 mmol/L (96-108); Estimated Glomerular Filt Rate > 60; Glucose Random 104 mg/dL (60-115); Potassium 4.8 mmol/L (3.3-5.1); Sodium 141 mmol/L (135-145); Total Protein 7.3 g/dL (6.5-8.0)
== END 2024-11-25 08:18 | disposition home or self-care (01) ==
LOC: HO.HMGCLDS 08:17
PROVIDERS: PCP Internal Medicine; Visit Provider Internal Medicine
DX: I10 Essential (primary) hypertension (principal)
CPT/HCPCS: 36415; 80053; 85025

== ENCOUNTER 2024-11-26 10:56 | Outpatient (AMB) | payer BC, SELFPAY ==
[2024-11-26 10:57] VITALS: BP 110/68; PULSE 63; RESP 18; TEMP 36.6; O2SAT 98; BMI 32.3
--- NOTE | 2024-11-26 10:57 | A.OFFPC_ITS ---
Vital Signs 11/26/24 10:57 Height 5 ft 10 in Weight 225 lb BMI 32.3 BP 110/68 Blood Pressure Location Lt brachial Position Sitting Respiration 18 Pulse 63 Pulse Source Pulse Oximeter Temp 97.8 F Temp Source Oral Pulse Oximetry (%) 98 Oxygen Delivery Method Room Air Intake Visit Reasons: 1 week f/up-HTN Intake Note: Pt is here today for 1 week follow up visit on HTN. Allergies atorvastatin Adverse Reaction (Intermediate, Verified 11/26/24 10:57) myalgia Medication List - Last Reconciled 11/26/24 by Viki Stanton MD amlodipine 5 mg PO DAILY aspirin 81 mg PO DAILY atorvastatin 80 mg PO BEDTIME bisacodyl (Dulcolax (bisacodyl)) 20 mg (4 x 5 mg) PO ONCE 1 day buspirone 10 mg PO BID lisinopril 30 mg PO DAILY magnesium aspart,citrate,oxide mg PO metoprolol succinate ER 50 mg PO DAILY omeprazole 40 mg (2 x 20 mg) PO DAILY polyethylene glycol 3350 (Miralax) 238 grams PO ONCE vardenafil 20 mg PO DAILY Tobacco use date assessed: 11/26/24 Dental Screening Dental Screen Date: 11/19/24 HPI 1 week f/up-HTN HPI Details Patient presents for the follow-up of hypertension and hyperlipidemia. Patient reports feeling anxious complains of insomnia and has been under increased stress at home. He is going to [employer] in few days. REPLACED BY [facility] Medical History CAD (coronary artery disease) Shoulder pain Anxiety Eczema Annual physical exam GERD (gastroesophageal reflux disease) Overweight Hyperlipidemia HTN (hypertension) Surgical History S/P left knee arthroscopy (07/05/23) Hx of heart artery stent History of esophagogastroduodenoscopy (EGD) H/O colonoscopy Family History Father Hypertension Heart problem Mother Hypertension Stroke Social History Housing: House Are you a primary respiratory care specialist to a significant other at home: No Alcohol intake: never Patient Tobacco Use Status: Former Tobacco user e-Cigarette/Vaping Use: Never Used service: No Current occupational status: retired Current occupation: rt hand Cognitive needs: No Hearing needs: No Vision needs: No Questionnaire Thrive Questionnaire Date Thrive assessed: 11/19/24 CLAUDIO-7 AMB Questionnaire CLAUDIO-7 Date CLAUDIO - 7 assessed: 11/19/24 Source: Developed by Drs. Gino Webb, Sheri Fernandez, Yoni Sousa and colleagues, with an educational rustam from [employer]. Review of Systems Const All systems reviewed & are unremarkable except as noted in HPI and below Eyes Reports no additional complaints ENT Reports no additional complaints Card Reports no additional complaints Resp Reports no additional complaints GI Reports no additional complaints Physical exam (Primary Care) Vital Signs: Last Vital Signs Temp 97.8 F 11/26/24 10:57 Pulse 63 11/26/24 10:57 Resp 18 11/26/24 10:57 BP 110/68 11/26/24 10:57 Pulse Ox 98 11/26/24 10:57 Oxygen Delivery Method Room Air 11/26/24 10:57 BMI result Body Mass Index 32.3 Tobacco/Smoking Status: Tobacco use Status Tobacco use date assessed 11/26/24 11/26/24 10:57 Patient Tobacco Use Status Former Tobacco user 11/26/24 10:57 e-Cigarette/Vaping Use Never Used 11/26/24 10:57 Thrive Assessment: Date of Thrive Assessment Date Thrive assessed 11/19/24 11/26/24 10:57 Const General: no acute distress HENMT Face and sinus: Yes normal facial exam Neck Neck: Yes no lymphadenopathy and Yes supple Resp Effort & Inspection: normal respiratory effort Auscultation: clear to auscultation bilaterally Cardio Rhythm: regular rhythm Heart sounds: S1 normal heart sound present and S2 normal heart sound present GI Inspection: Yes normal to inspection Coding Level of Care Code Est Pt Level 4 (69043) Diagnoses HTN (hypertension) I10 Anxiety F41.9 Hyperlipidemia E78.5 Assessment & Plan Assessment & Plan (1) HTN (hypertension): Code(s): I10 - Essential (primary) hypertension Category: Medical Plan: Continue current medications (2) Anxiety: Code(s): F41.9 - Anxiety disorder, unspecified Category: Medical Plan: Increase buspirone to 10 mg twice a day, counseling was recommended but patient declined (3) Hyperlipidemia: Code(s): E78.5 - Hyperlipidemia, unspecified Category: Medical Plan: Continue statin Medications: New buspirone 10 mg PO BID 180 tabs 1RF Refilled vardenafil 20 mg PO DAILY 5 tabs 2RF N52.9 - Male erectile dysfunction, unspecified Discontinued buspirone Discontinued Reason: Doctor's Order 5 mg PO .qd 30 tabs 3RF
== END 2024-11-26 11:50 | disposition home or self-care (01) ==
LOC: HO.HMCC 10:56
PROVIDERS: PCP Internal Medicine; Visit Provider Internal Medicine
DX: I10 Essential (primary) hypertension (principal); F41.9 Anxiety disorder, unspecified; E78.5 Hyperlipidemia, unspecified

== ENCOUNTER 2024-12-27 09:16 | Outpatient (REF) | payer BC, SELFPAY ==
[2024-12-27 10:41] LABS: Cholesterol 149 mg/dL (<200); HDL Cholesterol 33 mg/dL (>40); LDL Cholesterol Calculated 96 mg/dL (<100); Triglycerides 101 mg/dL (<150)
== END 2024-12-27 09:17 | disposition home or self-care (01) ==
LOC: HO.HMGCLDS 09:16
PROVIDERS: PCP Internal Medicine; Visit Provider Internal Medicine
DX: I25.10 Atherosclerotic heart disease of native coronary artery without angina pectoris (principal); E78.5 Hyperlipidemia, unspecified; I10 Essential (primary) hypertension
CPT/HCPCS: 36415; 80061

== ENCOUNTER 2025-01-01 12:25 | Outpatient (AMB) | payer BC, SELFPAY ==
[2025-01-01 12:43] VITALS: BP 118/68; PULSE 66; RESP 18; TEMP 36.6; O2SAT 98; BMI 32.4
--- NOTE | 2025-01-01 12:43 | A.OFFPC_ITS ---
Vital Signs 01/01/25 12:43 Height 5 ft 10 in Weight 226 lb BMI 32.4 BP 118/68 Blood Pressure Location Rt brachial Position Sitting Respiration 18 Pulse 66 Pulse Source Pulse Oximeter Temp 97.9 F Temp Source Oral Pulse Oximetry (%) 98 Oxygen Delivery Method Room Air Intake Visit Reasons: 1 months f/up Intake Note: Pt is here today for 1 month follow up visit on BP. Allergies atorvastatin Adverse Reaction (Intermediate, Verified 01/01/25 12:43) myalgia Medication List - Last Reconciled 01/01/25 by Viki Stanton MD amlodipine 5 mg PO DAILY aspirin 81 mg PO DAILY atorvastatin 80 mg PO BEDTIME bisacodyl (Dulcolax (bisacodyl)) 20 mg (4 x 5 mg) PO ONCE 1 day buspirone 10 mg PO BID lisinopril 30 mg PO DAILY magnesium aspart,citrate,oxide mg PO metoprolol succinate ER 50 mg PO DAILY omeprazole 40 mg (2 x 20 mg) PO DAILY polyethylene glycol 3350 (Miralax) 238 grams PO ONCE vardenafil 20 mg PO DAILY Tobacco use date assessed: 01/01/25 Fall risk assessment: No Falls in past year Last assessed Fall Risk: 01/01/25 Dental Screening Dental Screen Date: 11/19/24 HPI 1 months f/up HPI Details Pt presents for f/u HTN, hyperlipid, chronic anxiety stable on current medications PFSH Medical History CAD (coronary artery disease) Shoulder pain Anxiety Eczema Annual physical exam GERD (gastroesophageal reflux disease) Overweight Hyperlipidemia HTN (hypertension) Surgical History S/P left knee arthroscopy (07/05/23) Hx of heart artery stent History of esophagogastroduodenoscopy (EGD) H/O colonoscopy Family History Father Hypertension Heart problem Mother Hypertension Stroke Social History Housing: House Are you a primary out of school hours care worker to a significant other at home: No Alcohol intake: never Patient Tobacco Use Status: Former Tobacco user e-Cigarette/Vaping Use: Never Used service: No Current occupational status: retired Current occupation: rt hand Cognitive needs: No Hearing needs: No Vision needs: No Questionnaire Thrive Questionnaire Date Thrive assessed: 11/19/24 CLAUDIO-7 AMB Questionnaire CLAUDIO-7 Date CLAUDIO - 7 assessed: 11/19/24 Source: Developed by Drs. Gino Webb, Sheri Fernandez, Yoni Sousa and colleagues, with an educational rustam from [employer]. Review of Systems Const All systems reviewed & are unremarkable except as noted in HPI and below Card Reports no additional complaints Resp Reports no additional complaints GI Reports no additional complaints Reports no additional complaints Physical exam (Primary Care) Vital Signs: Last Vital Signs Temp 97.9 F 01/01/25 12:43 Pulse 66 01/01/25 12:43 Resp 18 01/01/25 12:43 BP 118/68 01/01/25 12:43 Pulse Ox 98 01/01/25 12:43 Oxygen Delivery Method Room Air 01/01/25 12:43 BMI result Body Mass Index 32.4 Tobacco/Smoking Status: Tobacco use Status Tobacco use date assessed 01/01/25 01/01/25 12:47 Patient Tobacco Use Status Former Tobacco user 01/01/25 12:47 e-Cigarette/Vaping Use Never Used 01/01/25 12:47 Thrive Assessment: Date of Thrive Assessment Date Thrive assessed 11/19/24 01/01/25 12:47 Const General: no acute distress HENMT Throat: Yes posterior oropharynx normal Resp Effort & Inspection: normal respiratory effort Auscultation: clear to auscultation bilaterally Cardio Rhythm: regular rhythm Heart sounds: S1 normal heart sound present and S2 normal heart sound present GI Inspection: Yes normal to inspection Palpation (GI): Soft to palpation Percussion: Yes normal to percussion Auscultation: normal bowel sounds Coding Level of Care Code Est Pt Level 4 (52639) Diagnoses HTN (hypertension) I10 Hyperlipidemia E78.5 CAD (coronary artery disease) I25.10 Anxiety F41.9 Assessment & Plan Assessment & Plan (1) HTN (hypertension): Code(s): I10 - Essential (primary) hypertension Category: Medical Plan: Continue current medications (2) Hyperlipidemia: Code(s): E78.5 - Hyperlipidemia, unspecified Category: Medical Plan: Continue high dose statin (3) CAD (coronary artery disease): Comment: s/p STEMI and RCA drug-eluting stent-December 2015 Code(s): I25.10 - Atherosclerotic heart disease of [place] coronary artery without angina pectoris Category: Medical Plan: Continue current medications including aspirin. (4) Anxiety: Code(s): F41.9 - Anxiety disorder, unspecified Category: Medical Plan: Continue buspirone 10 mg twice a day return for physical in 5 months Orders: Orders Comprehensive [place]. Panel Fast 5 Months E78.5 - Hyperlipidemia, unspecified, F41.9 - Anxiety disorder, unspecified, I10 - Essential (primary) hypertension, I25.10 - Atherosclerotic heart disease of [place] coronary artery without angina pectoris Complete Blood Count Auto Diff 5 Months E78.5 - Hyperlipidemia, unspecified, F41.9 - Anxiety disorder, unspecified, I10 - Essential (primary) hypertension, I25.10 - Atherosclerotic heart disease of [place] coronary artery without angina pectoris Lipid Panel 5 Months E78.5 - Hyperlipidemia, unspecified, F41.9 - Anxiety disorder, unspecified, I10 - Essential (primary) hypertension, I25.10 - Atherosclerotic heart disease of [place] coronary artery without angina pectoris PSA,Total (Free>4and<10) 5 Months E78.5 - Hyperlipidemia, unspecified, F41.9 - Anxiety disorder, unspecified, I10 - Essential (primary) hypertension, I25.10 - Atherosclerotic heart disease of [place] coronary artery without angina pectoris Medications: Refilled buspirone 10 mg PO BID 180 tabs 3RF
== END 2025-01-01 13:26 | disposition home or self-care (01) ==
LOC: HO.HMCC 12:26
PROVIDERS: PCP Internal Medicine; Visit Provider Internal Medicine
DX: I10 Essential (primary) hypertension (principal); E78.5 Hyperlipidemia, unspecified; I25.10 Atherosclerotic heart disease of native coronary artery without angina pectoris; F41.9 Anxiety disorder, unspecified

== ENCOUNTER → 2025-01-01 12:25 | Outpatient (BNVA) | payer BC, SELFPAY | PROVIDERS: PCP Internal Medicine; Visit Provider Internal Medicine ==

== ENCOUNTER 2025-05-20 08:31 | Outpatient (REF) | payer BC, SELFPAY ==
[2025-05-20 10:50] LABS: MANUAL DIFF FLAG NO
[2025-05-20 10:57] LABS: Appearance Urine Clear; Glucose Urine UA Negative (Negative); PH 7.0 (5.0-9.0); Specific Gravity - Urine 1.020 (1.005-1.025); UMIC TRIGGER UA YES
[2025-05-20 10:59] LABS: Hematocrit 44.8 % (42.0-52.0); Hemoglobin 15.1 g/dl (14.0-18.0); Imm Gran Abs Auto 0.02 X10*3/uL (0.00-0.03); Imm Gran Pct Auto 0.3 % (0.0-0.4); Lymphocytes Absolute Auto 1.7 X10*3/uL (1.2-4.9); Mean Corpuscular HGB Conc 33.7 g/dl (31.0-36.0); Mean Corpuscular Hemoglobin 28.4 pg (27.0-33.0); Mean Corpuscular Volume 84.2 fL (80.0-98.0); NRBC Abs Auto 0.000 X10*3/uL (0.0-0.012); NRBC Pct Auto 0.0 /100WBC (0.0-0.2); Platelet Count 187 X10*3/uL (160-400); Red Blood Count 5.32 X10*6/uL (4.60-5.80); White Blood Count 7.1 X10*3/uL (4.8-10.8)
[2025-05-20 12:05] LABS: PSA,Total (Free>4and<10) 0.97 ng/mL (0.00-4.00)
[2025-05-20 12:46] LABS: Alanine Aminotransferase 36 U/L (0-40); Albumin Level 4.4 g/dL (3.5-5.0); Alkaline Phosphatase 112 U/L (39-117); Anion Gap 13 (12-20); Aspartate Amino Transferase 25 U/L (5-37); Blood Urea Nitrogen 18 mg/dL (9-16); Calcium 8.8 mg/dL (8.4-10.2); Carbon Dioxide 26 mmol/L (22-29); Chloride 106 mmol/L (96-108); Cholesterol 123 mg/dL (<200); Estimated Glomerular Filt Rate > 60; HDL Cholesterol 35 mg/dL (>40); Potassium 4.3 mmol/L (3.3-5.1); Sodium 141 mmol/L (135-145); Total Protein 6.9 g/dL (6.5-8.0); Triglycerides 59 mg/dL (<150)
== END 2025-05-20 08:32 | disposition home or self-care (01) ==
LOC: HO.HMGCLDS 08:31
PROVIDERS: PCP Internal Medicine; Visit Provider Internal Medicine
DX: Z00.00 Encounter for general adult medical examination without abnormal findings (principal); Z12.5 Encounter for screening for malignant neoplasm of prostate; I25.10 Atherosclerotic heart disease of native coronary artery without angina pectoris; I10 Essential (primary) hypertension; E78.5 Hyperlipidemia, unspecified; F41.9 Anxiety disorder, unspecified
CPT/HCPCS: 36415; 80053; 80061; 81001; 84153; 85025

== ENCOUNTER 2025-05-20 08:31 | Outpatient (AMB) | payer BC, SELFPAY ==
[2025-05-20 08:31] VITALS: BP 134/82; PULSE 66; RESP 18; TEMP 36.6; O2SAT 99; BMI 32.9
--- NOTE | 2025-05-20 08:31 | A.OFFPC_ITS ---
Vital Signs 05/20/25 08:31 Height 5 ft 10 in Weight 229 lb BMI 32.9 BP 134/82 Blood Pressure Location Lt brachial Position Sitting Respiration 18 Pulse 66 Pulse Source Pulse Oximeter Temp 97.8 F Temp Source Oral Pulse Oximetry (%) 99 Oxygen Delivery Method Room Air Intake Visit Reasons: Annual PE Intake Note: Pt is here today for PE. Allergies atorvastatin Adverse Reaction (Intermediate, Verified 05/20/25 08:32) myalgia Medication List - Last Reconciled 05/20/25 by Viki Stanton MD amlodipine 5 mg PO DAILY aspirin 81 mg PO DAILY atorvastatin 80 mg PO DAILY bisacodyl (Dulcolax (bisacodyl)) 20 mg (4 x 5 mg) PO ONCE 1 day buspirone 10 mg PO BID lisinopril 30 mg PO DAILY magnesium aspart,citrate,oxide mg PO metoprolol succinate ER 50 mg PO DAILY omeprazole 40 mg (2 x 20 mg) PO DAILY polyethylene glycol 3350 (Miralax) 238 grams PO ONCE vardenafil 20 mg PO DAILY Tobacco use date assessed: 05/20/25 Fall risk assessment: No Falls in past year Last assessed Fall Risk: 05/20/25 Dental Screening Dental Screen Date: 05/20/25 Did you have a dental visit in the last 12 months?: Yes Did you have a dental problem in the last 6 months where you did not have access to dental care?: No Was dental information given to patient?: Patient has dentist HPI Annual PE HPI Details Pt presents for PE PFSH Medical History CAD (coronary artery disease) Shoulder pain Anxiety Eczema Annual physical exam GERD (gastroesophageal reflux disease) Overweight Hyperlipidemia HTN (hypertension) Surgical History S/P left knee arthroscopy (07/05/23) Hx of heart artery stent History of esophagogastroduodenoscopy (EGD) H/O colonoscopy Family History Father Hypertension Heart problem Mother Hypertension Stroke Social History Housing: House Are you a primary inpatient care manager rn to a significant other at home: No Alcohol intake: never Patient Tobacco Use Status: Former Tobacco user e-Cigarette/Vaping Use: Never Used service: No Current occupational status: retired Current occupation: rt hand Cognitive needs: No Hearing needs: No Vision needs: No Questionnaire Thrive Questionnaire Date Thrive assessed: 11/19/24 AUDIT C Alcohol Use Questionnaire (AUDIT-C) 1. How often do you have a drink containing alcohol?: Never 3. How often do you have six or more drinks on one occasion?: Never Total Score: 0 CLAUDIO-7 AMB Questionnaire CLAUDIO-7 Date CLAUDIO - 7 assessed: 11/19/24 Source: Developed by Drs. Gino Webb, Sheri Fernandez, Yoni Sousa and colleagues, with an educational rustam from [employer]. Review of Systems Const All systems reviewed & are unremarkable except as noted in HPI and below Eyes Reports no additional complaints ENT Reports no additional complaints Card Reports no additional complaints Resp Reports no additional complaints GI Reports no additional complaints Reports no additional complaints Physical exam (Primary Care) Vital Signs: Last Vital Signs Temp 97.8 F 05/20/25 08:31 Pulse 66 05/20/25 08:31 Resp 18 05/20/25 08:31 BP 134/82 05/20/25 08:31 Pulse Ox 99 05/20/25 08:31 Oxygen Delivery Method Room Air 05/20/25 08:31 BMI result Body Mass Index 32.9 Tobacco/Smoking Status: Tobacco use Status Tobacco use date assessed 05/20/25 05/20/25 08:37 Patient Tobacco Use Status Former Tobacco user 05/20/25 08:37 e-Cigarette/Vaping Use Never Used 05/20/25 08:37 Thrive Assessment: Date of Thrive Assessment Date Thrive assessed 11/19/24 05/20/25 08:37 Const General: no acute distress HENMT Ears: TM's normal bilaterally General nose exam: Normal external nose present Face and sinus: Yes normal facial exam Mouth: Normal oral and palatal mucosa present Throat: Yes posterior oropharynx normal Eyes General: appearance normal, both eyes and all related structures Neck Neck: Yes no lymphadenopathy and Yes supple Resp Effort & Inspection: normal respiratory effort Auscultation: clear to auscultation bilaterally Cardio Rhythm: regular rhythm Heart sounds: S1 normal heart sound present and S2 normal heart sound present GI Inspection: Yes normal to inspection Palpation (GI): Soft to palpation Percussion: Yes normal to percussion Auscultation: normal bowel sounds Coding Level of Care Code Est Pt Prev Care >65y(94813) Diagnoses Annual physical exam Z00.00 HTN (hypertension) I10 Hyperlipidemia E78.5 Assessment & Plan Assessment & Plan (1) Annual physical exam: Code(s): Z00.00 - Encounter for general adult medical examination without abnormal findings Category: Medical Plan: WELL-BALANCED DIET REGULAR EXERCISE DISCUSSED WITH THE PATIENT. He is overdue for colonoscopy and will be referred to GI (2) HTN (hypertension): Code(s): I10 - Essential (primary) hypertension Category: Medical Plan: Continue current medications (3) Hyperlipidemia: Code(s): E78.5 - Hyperlipidemia, unspecified Category: Medical Plan: Continue statin follow-up in 6 months Orders: Orders UA w Microscopic Today Z00.00 - Encounter for general adult medical examination without abnormal findings Comprehensive [place]. Panel Fast 6 Months E78.5 - Hyperlipidemia, unspecified, I10 - Essential (primary) hypertension Lipid Panel 6 Months E78.5 - Hyperlipidemia, unspecified, I10 - Essential (primary) hypertension Referrals Gastroenterology Referral Z00.00 - Encounter for general adult medical examination without abnormal findings Medications: New ciclopirox 8% 1 appl topical BEDTIME 6.6 mL 4RF 4 weeks Refilled atorvastatin 80 mg PO DAILY 90 tabs 3RF metoprolol succinate ER 50 mg PO DAILY 90 tabs 3RF buspirone 10 mg PO BID 180 tabs 3RF amlodipine 5 mg PO DAILY 90 tabs 3RF lisinopril 30 mg PO DAILY 90 tabs 3RF vardenafil 20 mg PO DAILY 8 tabs 2RF N52.9 - Male erectile dysfunction, unspecified
--- OUTSIDE RECORDS SUMMARY | 2025-05-20 09:09 | XMS_ITS | Clinical Summary ---
Author Organization [facility] Address [address] [place] [id number] Phone Care Team Providers Care Wire Stretcher Name Role Phone Unknown, Unknown Primary Care Provider Unavai lable Allergies No known active allergies Medications lisinopril (PRINIVIL,ZESTRI L) 30 MG tablet Take 30 mg by mouth daily. 01/15/2022 Active metoprolol succinate (TOPROL-XL) 50 MG 24 hr tablet Take 50 mg by mouth daily. 01/15/2022 Active omeprazole (PRILOSEC) 20 MG capsule Take 40 mg by mouth daily. 01/15/2022 Active atorvastatin (LIPITOR) 80 MG tablet Take 80 mg by mouth daily. 01/15/2022 Active busPIRone (BUSPAR) 5 MG tablet Take 5 mg by mouth 2 (two) times a day. 01/15/2022 Active aspirin 81 MG EC tablet Take 81 mg by mouth daily. Active Active Problems No known active problems Social History Tobacco Use Types Packs/Day Years Used Date Smoking Tobacco: Former Smokeless Tobacco: Never Education Answer Date Recorded Are you interested in more education? Not on sue e 01/14/2023 Are you concerned about learning? Not on file 01/14/2023 No 01/14/2023 No 01/14/2023 Digital Access Answer Date Recorded No 02/12/2023 No 02/12/2023 No 02/12/2023 Reliable internet access at home? Not on file 02/12/2023 Device with a working camera? Not on file Comments Unknown Sex and Gender Information Value Date Recorded Sex Assigned at Not on file Legal Sex Unknown 02/02/2022 9:27 AM EDT Gender Identity Not on file Sexual Orientation Not on file Last Filed Vital Signs Vital Sign Reading Time Taken Comments Blood Pressure 140/88 02/02/2022 11:15 AM EDT Pulse 70 02/02/2022 10:58 AM EDT Temperature 36.5 C (97.7 F) 02/02/2022 10:58 AM EDT Respiratory Rate 19 02/02/2022 10:5 8 AM EDT Oxygen Saturation 98% 02/02/2022 10: 58 AM EDT Inhaled Oxygen Concentration - - Weight 104.3 kg (230 lb) 02/02/2022 10: 58 AM EDT patient reports Height - - Body Mass Index - - Plan of Treatment Health Maintenance Due Date Last Done Comments Adult Td,Tdap Booster 1957 CREATININE LEVEL 1957 LIPID PANEL 1957 POTASSIUM LEVEL 1957 DEPRESSION SCREENING 1969 SMOKING Hx and SMOKELESS TOB ACCO SCREENING 1970 HEPATITIS C SCREENING 1975 COLOGUARD 2002 COLONOSCOPY 2002 COLORECTAL CANCER SCREENING 2002 FIT TEST 2002 FOBT 2002 SIGMOIDOSCOPY 2002 VIRTUAL COLONOSCOPY 2002 PNEUMOCOCCAL VACCINES (50+ y ears) (1 of 1 - PCV) 2007 ZOSTER VACCINES (1 of 2) 2007 COVID-19 VACCINE ( - 2023-2 5 season) 2024 RSV VACCINE (1 - 1-dose 75+ series) 01/22/2032 HEPATITIS A VACCINES Aged Out No long er eligible based on patient's age to complete this topic HIB VACCINES Aged Out No longer eligi ble based on patient's age to complete this topic MENINGOCOCCAL VACCINES (ACWY) Aged Out No longer eligible based on patient's age to complete this topic MENINGOCOCCAL VACCINES (B) Aged Out N o longer eligible based on patient's age to complete this topic Medical Devices Not on file Insurance [facility] PPO BLUE CROSS OUT OF STATE PPO [employer]UE [employer] OUT OF STATE [place] BL[place] [id number] [place] [address] BLUE [employer]OSS OUT OF STATE PPO [facility] OUT OF STATE PPO Care Teams Wire Stretcher Relationship Specialty Start Date End Date Unknown, Unknown, PCP - General 02/02/22 Additional Source Comments The information contained in this document represents components of the legal health record. It is not the complete legal health record.[facility]
== END 2025-05-20 09:07 | disposition home or self-care (01) ==
LOC: HO.HMCC 08:31
PROVIDERS: PCP Internal Medicine; Visit Provider Internal Medicine
DX: Z00.00 Encounter for general adult medical examination without abnormal findings (principal); I10 Essential (primary) hypertension; E78.5 Hyperlipidemia, unspecified